=== PATIENT | male | born 1970 | race Caucasian/White ===

== ENCOUNTER 2023-03-27 14:48 | Emergency (ER) | payer SELFPAY ==
[2023-03-27 14:53] VITALS: BP 121/81; PULSE 116; RESP 14; TEMP 36.7; O2SAT 94; BMI 23.8
--- NOTE | 2023-03-27 15:01 | W.ED.ABDPA2 ---
HPI - Abdominal Pain General: Chief Complaint: Abdominal Pain Stated Complaint: swollen abd Time Seen by Provider: 03/27/23 14:51 Source: patient Mode of arrival: ambulatory Limitations: no limitations History of Present Illness: 52-year-old male has history of cirrhosis states that he has been having increasing abdominal distention been going on for months. States that its been increasing in size he states he recently moved here from [place]. He states he is never had a paracentesis before denies any fevers he does have some diffuse slight pain he rates a 4 out of 10. Associated Symptoms: Denies chills, dysuria and fever(s) Review of Systems Const: Denies: fever(s), chills, body aches or change in appetite Eyes: Denies: blurry vision or eye discomfort ENMT: Denies: throat pain or dental pain Card: Denies: chest pain Resp: Denies: dyspnea GI: Reports: abdominal pain : Denies: dysuria Musc: Denies: neck pain or back pain Skin/Breast: Denies: rash Neuro: Denies: headache(s) Physical Exam Const: COMMON NORMALS: no acute distress, patient oriented x3 and healthy appearing HENMT: COMMON NORMALS: normocephalic and atraumatic HEAD & SCALP: normocephalic and atraumatic Neck/C-Spine: COMMON NORMALS: full ROM and supple Chest: COMMONS NORMALS: normal inspection of the chest and normal palpation of entire chest wall Resp: COMMON NORMALS: normal respiratory effort, No retractions, No use of accessory muscles and clear to auscultation bilaterally AUSCULTATION: clear to auscultation bilaterally Cardio: COMMON NORMALS: regular rate, regular rhythm and No murmurs present (Cardio) RATE: regular rate RHYTHM: regular rhythm GI: COMMON NORMALS: Soft to palpation, non-tender and no masses PALPATION: Yes Soft to palpation OTHER: Abdomen is distended has ascites Extremity: COMMON NORMALS: normal to inspection and full ROM Neuro: COMMON NORMALS: patient oriented x3, moves all extremities and no focal motor deficits Psych: COMMON NORMALS: mental status grossly normal, Normal thought process present and cooperative THOUGHT PROCESS: Normal thought process present Skin: COMMON NORMALS: no rashes or lesions noted and no wounds GENERAL SKIN EXAM: no rashes or lesions noted Course Vital Signs: Vital signs: Vital Signs Temperature 98.1 F 03/27/23 14:53 Pulse Rate 116 H 03/27/23 14:53 Respiratory Rate 14 03/27/23 14:53 Blood Pressure 121/81 03/27/23 14:53 Pulse Oximetry 94 03/27/23 14:53 Oxygen Delivery Me thod Room Air 03/27/23 14:53 MDM - Abdominal Pain Medical Decision Making Patient presents with abdominal pain along with ascites been chronic in nature she has no signs of spontaneous bacterial peritonitis she has no dyspnea he is in no distress here we will get him set up for an outpatient paracentesis along with the PCP he is return if worsening he understands agrees to plan. Medical Records I reviewed the patient's medical records. Lab Data I reviewed the patient's lab results. 03/27/23 15:05 03/27/23 15:05 Labs/Radiology: Laboratory Results WBC 6.74 10^3/uL (3.29-11.43) 03/27/23 15:05 RBC 3.27 10^6/uL (3.85-5.65) L 03/27/23 15:05 Hgb 10.00 g/dL (11.27-16.99) L 03/27/23 15:05 Hct 31.1 % (37-53) L 03/27/23 15:05 MCV 95.1 fl (82-101) 03/27/23 15:05 MCH 30.6 pg (27-33) 03/27/23 15:05 MCHC 32.2 g/dL (30-55) 03/27/23 15:05 RDW 17.0 % (12.1-15.1) H 03/27/23 15:05 Plt Count 105 10^3/cmm (157-399) L 03/27/23 15:05 MPV 11.5 fL (7.4-10.4) H 03/27/23 15:05 Neut % (Auto) 74.1 % 03/27/23 15:05 Lymph % (Auto) 17.5 % 03/27/23 15:05 Bent % (Auto) 6.4 % 03/27/23 15:05 Eos % (Auto) 1.3 % 03/27/23 15:05 Baso % (Auto) 0.6 % 03/27/23 15:05 Neut # (Auto) 4.99 10^3/uL (1.8-7.7) 03/27/23 15:05 Lymph # (Auto) 1.2 10^3/uL (0.8-4.8) 03/27/23 15:05 Bent # (Auto) 0.4 10^3/uL (0.2-0.9) 03/27/23 15:05 Eos # (Auto) 0.1 10^3/uL (0.0-0.8) 03/27/23 15:05 Baso # (Auto) 0.0 10^3/uL (0.0-0.1) 03/27/23 15:05 Nucleated RBC % (auto) 0 % 03/27/23 15:05 Nucleated RBCs # 0.0 /100WBC 03/27/23 15:05 Sodium 137 mmol/L (136-145) 03/27/23 15:05 Potassium 3.2 mmol/L (3.5-5.1) L 03/27/23 15:05 Chloride 109 mmol/L (98-107) H 03/27/23 15:05 Carbon Dioxide 17 mmol/L (22-29) L 03/27/23 15:05 Anion Gap 14.2 (5-19) 03/27/23 15:05 BUN 12 mg/dL (6-20) 03/27/23 15:05 Creatinine 0.9 mg/dL (0.7-1.2) 03/27/23 15:05 GFR Calculation 89.3 mL/min (90-130) L 03/27/23 15:05 Glucose 129 mg/dL (65-115) H 03/27/23 15:05 Calculated Osmolality 285 mOsm/kg (285-295) 03/27/23 15:05 Calcium 7.7 mg/dL (8.5-10.5) L 03/27/23 15:05 Total Bilirubin 1.2 mg/dL (0.15-1.2) 03/27/23 15:05 AST 24 U/L (0-40) 03/27/23 15:05 ALT 11 U/L (0-41) 03/27/23 15:05 Alkaline Phosphatase 133 U/L (40-130) H 03/27/23 15:05 Total Protein 7.6 g/dL (6.6-8.7) 03/27/23 15:05 Albumin 2.7 g/dL (3.5-5.2) L 03/27/23 15:05 Globulin 4.9 g/dL (1.3-4.6) H 03/27/23 15:05 Lipase 36 U/L (13-60) 03/27/23 15:05 Discharge Plan Discharge Patient Disposition: Home Clinical Impression: Abdominal pain, Abdominal ascites Condition: Stable Prescriptions: No Action Prilosec 40 mg Capsule,Delayed Release(Dr/Ec) 40 mg PO BID trazodone 100 mg Tablet 100 mg PO BEDTIME Adderall 20 mg Tablet 20 mg PO BID Rx Instructions: administer doses at least 4-6 hours apart Xanax 2 mg Tablet 2 mg PO BEDTIME turmeric 400 mg Capsule 400 mg PO DAILY alex root-pyridoxine HCl(B6) 325-25 mg Capsule 1 cap PO DAILY Discharge Orders: Discharge ED (Routine); Ordered 03/27/23 Ordered By: Mike Hess Discharge Diet: Advance as tolerated Discharge Activity: Resume usual activity Patient Instructions: Ascites (ED), Abdominal Pain (ED) Coding Level of Care Code ED Pulmonologist/Intensivist for aNte Ford
[2023-03-27 15:11] LABS: Basophils % 0.6 %; Eosinophils # 0.1 10^3/uL (0.0-0.8); Eosinophils % 1.3 %; Hematocrit 31.1 % (37-53); Lymphocytes # 1.2 10^3/uL (0.8-4.8); Lymphocytes % 17.5 %; Mean Corpuscular HGB Conc 32.2 g/dL (30-55); Mean Corpuscular Hemoglobin 30.6 pg (27-33); Mean Corpuscular Volume 95.1 fl (82-101); Mean Platelet Volume 11.5 fL (7.4-10.4); Monocytes # 0.4 10^3/uL (0.2-0.9); Monocytes % 6.4 %; Neutrophils # 4.99 10^3/uL (1.8-7.7); Neutrophils % 74.1 %; Nucleated Red Blood Cells % 0 %; Platelet Count 105 10^3/cmm (157-399); Red Blood Count 3.27 10^6/uL (3.85-5.65); White Blood Count 6.74 10^3/uL (3.29-11.43)
--- NOTE | 2023-03-27 15:26 | PC.PHAR ---
pts states they just moved from [place] and not filled his meds since moving here but states the pt takes the medications entered-pt states was on protonix bid but states ran out so went back to taking prilosec 40mg bid-notes are made in the pharmacy comments
[2023-03-27] MEDS: HYDROmorphone 1 mg/mL INJ 1 mL 0.5 MG IVP (15:29)
[2023-03-27] MEDS: ondansetron 2 mg/ML SDV 2 mL 4 MG IVP (15:29)
[2023-03-27 15:34] LABS: Alanine Aminotransferase 11 U/L (0-41); Albumin Level 2.7 g/dL (3.5-5.2); Alkaline Phosphatase 133 U/L (40-130); Blood Urea Nitrogen 12 mg/dL (6-20); Calcium 7.7 mg/dL (8.5-10.5); Carbon Dioxide 17 mmol/L (22-29); Chloride 109 mmol/L (98-107); Globulin 4.9 g/dL (1.3-4.6); Glomerular Filtration Rate 89.3 mL/min (90-130); Glucose 129 mg/dL (65-115); Lipase 36 U/L (13-60); Osmolality Calculated 285 mOsm/kg (285-295); Sodium 137 mmol/L (136-145); Total Bilirubin 1.2 mg/dL (0.15-1.2); Total Protein 7.6 g/dL (6.6-8.7)
[2023-03-27 15:39] LABS: Anion Gap 14.2 (5-19); Aspartate Amino Transferase 24 U/L (0-40); Potassium 3.2 mmol/L (3.5-5.1)
[2023-03-27 16:00] VITALS: BP 112/84; PULSE 104; O2SAT 92
--- NOTE | 2023-03-28 08:16 | DCPLANNER ---
shopping centre manager had message to schedule an outpatient paracentesis for patient. shopping centre manager faxed signed order to GI lab to be scheduled.
--- NOTE | 2023-03-28 10:51 | DCPLANNER ---
global manager had message to speak with patient about getting established with a primary care physician. global manager unable to speak with patient at this time.
== END 2023-03-27 16:12 | disposition home or self-care (01) ==
PROVIDERS: Emergency Provider Emergency Medicine
DX: R10.9 Unspecified abdominal pain (principal); R18.8 Other ascites
CPT/HCPCS: 80053; 83690; 85025; 85610; 96374; 96375; 99284; J1170; J2405

== ENCOUNTER → 2023-03-30 11:34 | Day surgery (SDC) | payer SELFPAY ==
--- NOTE | 2023-03-30 11:40 | US_ITS ---
WS: [id number] ULTRASOUND-GUIDED THERAPEUTIC PARACENTESIS Procedure, risks, and complications have been explained to the patient. Consent is obtained. Utilizing aseptic technique and 1% buffered lidocaine, a small dermatome was made through which a 5 F rench Yueh catheter was inserted. Approximately 4900 ml of clear peritoneal fluid was obtained witho ut difficulty. No complications encountered. IMPRESSION: Uncomplicated paracentesis yielding 4900 ml of peritoneal fluid.
[2023-03-30 11:52] VITALS: BP 105/75; PULSE 103; RESP 16; TEMP 36.9; O2SAT 95; BMI 23.8
[2023-03-30 13:05] VITALS: BP 106/69
[2023-03-30 13:09] VITALS: RESP 16
[2023-03-30] MEDS: oxyCODONE 5 mg IR Tab/Cap PO (13:09)
[2023-03-30] MEDS: ondansetron 4 MG Tablet PO (13:09)
[2023-03-30 13:24] VITALS: BP 98/56; PULSE 90; RESP 18; O2SAT 98
== END ==
PROVIDERS: Radiology Diagnostic Radiology; Visit Provider Emergency Medicine
PROC: (CPT 49082; principal; 2023-03-30 11:30)
DX: R18.8 Other ascites (principal)
CPT/HCPCS: 49083; Q0162

== ENCOUNTER 2023-04-10 23:02 | Emergency (ER) | payer SELFPAY ==
[2023-04-10 23:31] VITALS: BP 110/80; PULSE 101; RESP 16; TEMP 36.6; O2SAT 97; BMI 23.1
--- NOTE | 2023-04-10 23:52 | W.ED.ABDPA2 ---
HPI - Abdominal Pain General: Chief Complaint: Abdominal Pain Stated Complaint: abdomen swelling Time Seen by Provider: 04/10/23 23:46 History of Present Illness: Patient presents to the ER with abdominal pain from known cirrhosis and ascites. Patient had a paracentesis approximately 2 weeks ago and has been feeling back up with fluid ever since. Patient complains of nausea vomiting this time as well as a distended painful abdomen. Patient denies any fever or chills. Review of Systems General: Reports: 10 or more systems reviewed and unremarkable except in HPI and below Physical Exam Const: COMMON NORMALS: no acute distress, average body habitus, patient oriented x3, no limitations, alert and well nourished HENMT: COMMON NORMALS: normocephalic, atraumatic, hearing grossly normal bilaterally, external ears normal, Normal external nose present and moist oral mucous membranes HEAD & SCALP: normocephalic and atraumatic NOSE: Normal external nose present EXTERNAL EAR: Yes external ears normal Neck/C-Spine: COMMON NORMALS: no JVD Chest: COMMONS NORMALS: normal inspection of the chest and normal palpation of entire chest wall Resp: COMMON NORMALS: normal respiratory effort, No retractions, No use of accessory muscles and clear to auscultation bilaterally AUSCULTATION: clear to auscultation bilaterally Cardio: COMMON NORMALS: no JVD, regular rate, regular rhythm, S1 normal heart sound present, S2 normal heart sound present, No gallops present (Cardio), No clicks present (Cardio), No murmurs present (Cardio) and No rub (Cardio) RATE: regular rate RHYTHM: regular rhythm HEART SOUNDS: S1 normal heart sound present and S2 normal heart sound present GI: COMMON NORMALS: Soft to palpation; negative for Normal to inspection, nondistended, normoactive bowel sounds present (Distended but soft, normal active bowel sounds,) and negative for non-tender (Diffusely tender) PALPATION: Yes Soft to palpation : COMMON NORMALS: Yes no CVA tenderness BLADDER/KIDNEY EXAM: Yes no CVA tenderness Back/Pelvis: COMMON NORMALS: no CVA tenderness Neuro: COMMON NORMALS: patient oriented x3 SENSORIUM/ORIENTATION: Yes alert Course Vital Signs: Vital signs: Vital Signs Temperature 98 F 04/10/23 23:31 Pulse Rate 101 H 04/10/23 23:31 Respiratory Rate 16 04/10/23 23:31 Blood Pressure 110/80 04/10/23 23:31 Pulse Oximetry 97 04/10/23 23:31 Oxygen Delivery Me thod Room Air 04/10/23 23:31 MDM - Abdominal Pain Medical Decision Making Patient presents to the ER with abdominal distention ascites secondary to cirrhosis. He was tapped approximately 2 weeks ago probably needs to be tapped again in the short-term future. Lab work was obtained which was stable for the patient patient was given 1 mg of Dilaudid and 4 mg Zofran IM. Patient be sent home with a few oxycodone. Case management has been consulted to schedule a paracentesis again. Patient should follow-up with his PCP within next 7 days or sooner as needed to get this done on outpatient basis. Differential Diagnosis Likely abdominal pain; Unlikely acute appendicitis, calculus of kidney, constipation, diverticulitis, endometriosis, gastroenteritis, pancreatitis or small bowel obstruction Medical Records I reviewed the patient's medical records. Lab Data I reviewed the patient's lab results. 04/10/23 23:54 04/10/23 23:54 Labs/Radiology: Laboratory Results WBC 6.77 10^3/uL (3.29-11.43) 04/10/23 23:54 RBC 3.34 10^6/uL (3.85-5.65) L 04/10/23 23:54 Hgb 10.40 g/dL (11.27-16.99) L 04/10/23 23:54 Hct 32.3 % (37-53) L 04/10/23 23:54 MCV 96.7 fl (82-101) 04/10/23 23:54 MCH 31.1 pg (27-33) 04/10/23 23:54 MCHC 32.2 g/dL (30-55) 04/10/23 23:54 RDW 16.6 % (12.1-15.1) H 04/10/23 23:54 Plt Count 86 10^3/cmm (157-399) L 04/10/23 23:54 MPV 12.3 fL (7.4-10.4) H 04/10/23 23:54 Neut % (Auto) 71.9 % 04/10/23 23:54 Lymph % (Auto) 20.2 % 04/10/23 23:54 [place] % (Auto) 5.5 % 04/10/23 23:54 Eos % (Auto) 1.5 % 04/10/23 23:54 Baso % (Auto) 0.6 % 04/10/23 23:54 Neut # (Auto) 4.87 10^3/uL (1.8-7.7) 04/10/23 23:54 Lymph # (Auto) 1.4 10^3/uL (0.8-4.8) 04/10/23 23:54 [place] # (Auto) 0.4 10^3/uL (0.2-0.9) 04/10/23 23:54 Eos # (Auto) 0.1 10^3/uL (0.0-0.8) 04/10/23 23:54 Baso # (Auto) 0.0 10^3/uL (0.0-0.1) 04/10/23 23:54 Nucleated RBC % (auto) 0 % 04/10/23 23:54 Nucleated RBCs # 0.0 /100WBC 04/10/23 23:54 PT 17.30 SECONDS (12.1-14.9) H 04/10/23 23:54 INR 1.37 (0.8-1.2) H 04/10/23 23:54 Sodium 139 mmol/L (136-145) 04/10/23 23:54 Potassium 3.6 mmol/L (3.5-5.1) 04/10/23 23:54 Chloride 110 mmol/L (98-107) H 04/10/23 23:54 Carbon Dioxide 18 mmol/L (22-29) L 04/10/23 23:54 Anion Gap 14.6 (5-19) 04/10/23 23:54 BUN 14 mg/dL (6-20) 04/10/23 23:54 Creatinine 1.0 mg/dL (0.7-1.2) 04/10/23 23:54 GFR Calculation 79.1 mL/min (90-130) L 04/10/23 23:54 Glucose 84 mg/dL (65-115) 04/10/23 23:54 Calculated Osmolality 288 mOsm/kg (285-295) 04/10/23 23:54 Calcium 8.4 mg/dL (8.5-10.5) L 04/10/23 23:54 Total Bilirubin 1.5 mg/dL (0.15-1.2) H 04/10/23 23:54 AST 25 U/L (0-40) 04/10/23 23:54 ALT 13 U/L (0-41) 04/10/23 23:54 Alkaline Phosphatase 126 U/L (40-130) 04/10/23 23:54 Total Protein 7.6 g/dL (6.6-8.7) 04/10/23 23:54 Albumin 2.8 g/dL (3.5-5.2) L 04/10/23 23:54 Globulin 4.8 g/dL (1.3-4.6) H 04/10/23 23:54 No radiology studies performed this visit Discharge Plan Discharge Patient Disposition: Home Clinical Impression: Cirrhosis of liver with ascites Qualifiers: Hepatic cirrhosis type: unspecified hepatic cirrhosis Qualified Code(s): K74.60 - Unspecified cirrhosis of liver Condition: Stable Prescriptions: New oxycodone 5 mg tablet 5 mg PO Q12H Qty: 7 0RF ondansetron HCl 4 mg tablet 4 mg PO Q8H PRN (Reason: nausea and vomiting) Qty: 14 0RF No Action omeprazole [Prilosec] 40 mg Capsule,Delayed Release(Dr/Ec) 40 mg PO BID trazodone 100 mg Tablet 100 mg PO BEDTIME dextroamphetamine-amphetamine [Adderall] 20 mg Tablet 20 mg PO BID Rx Instructions: administer doses at least 4-6 hours apart alprazolam [Xanax] 2 mg Tablet 2 mg PO BEDTIME turmeric 400 mg Capsule 400 mg PO DAILY alex root-pyridoxine HCl(B6) 325-25 mg Capsule 1 cap PO DAILY Discharge Orders: Discharge ED (Routine); Ordered 04/11/23 Ordered By: Lex Candelario Patient Instructions: Cirrhosis of the Liver (ED), Ascites (ED) Coding Level of Care Code ED Senior Product Engineer for Nate Ford
[2023-04-11 00:13] LABS: Basophils % 0.6 %; Eosinophils # 0.1 10^3/uL (0.0-0.8); Eosinophils % 1.5 %; Hematocrit 32.3 % (37-53); INR 1.37 (0.8-1.2); Lymphocytes # 1.4 10^3/uL (0.8-4.8); Lymphocytes % 20.2 %; Mean Corpuscular HGB Conc 32.2 g/dL (30-55); Mean Corpuscular Hemoglobin 31.1 pg (27-33); Mean Corpuscular Volume 96.7 fl (82-101); Mean Platelet Volume 12.3 fL (7.4-10.4); Monocytes # 0.4 10^3/uL (0.2-0.9); Monocytes % 5.5 %; Neutrophils # 4.87 10^3/uL (1.8-7.7); Neutrophils % 71.9 %; Nucleated Red Blood Cells % 0 %; Platelet Count 86 10^3/cmm (157-399); Red Blood Count 3.34 10^6/uL (3.85-5.65); Red Cell Distribution Width 16.6 % (12.1-15.1); White Blood Count 6.77 10^3/uL (3.29-11.43)
[2023-04-11 00:22] LABS: Alanine Aminotransferase 13 U/L (0-41); Albumin Level 2.8 g/dL (3.5-5.2); Alkaline Phosphatase 126 U/L (40-130); Anion Gap 14.6 (5-19); Aspartate Amino Transferase 25 U/L (0-40); Blood Urea Nitrogen 14 mg/dL (6-20); Calcium 8.4 mg/dL (8.5-10.5); Carbon Dioxide 18 mmol/L (22-29); Chloride 110 mmol/L (98-107); Globulin 4.8 g/dL (1.3-4.6); Glomerular Filtration Rate 79.1 mL/min (90-130); Glucose 84 mg/dL (65-115); Osmolality Calculated 288 mOsm/kg (285-295); Potassium 3.6 mmol/L (3.5-5.1); Sodium 139 mmol/L (136-145); Total Bilirubin 1.5 mg/dL (0.15-1.2); Total Protein 7.6 g/dL (6.6-8.7)
[2023-04-11] MEDS: ondansetron 2 mg/ML SDV 2 mL 4 MG IM (00:28)
[2023-04-11] MEDS: HYDROmorphone 1 mg/mL INJ 1 mL IM (00:28)
[2023-04-11 01:09] VITALS: BP 110/80; PULSE 101; RESP 16; TEMP 36.6; O2SAT 97
--- NOTE | 2023-04-11 08:06 | PC.SOCIAL ---
Paracentesis Orders faxed to centralized scheduling at this time.
== END 2023-04-11 01:10 | disposition home or self-care (01) ==
PROVIDERS: Emergency Provider Emergency Medicine
DX: K74.60 Unspecified cirrhosis of liver (principal); R18.8 Other ascites
CPT/HCPCS: 36415; 80053; 85025; 85610; 99284; J1170; J2405

== ENCOUNTER 2023-04-19 10:55 | Day surgery (SDC) | payer SELFPAY ==
--- NOTE | 2023-04-19 11:11 | US_ITS ---
WS: [id number] ULTRASOUND-GUIDED PARACENTESIS CLINICAL INFORMATION: ascites COMPARISON: None. Procedure Informed consent: The risks, benefits, and alternatives of the procedure were discussed with the chanda ent. Verbal and written consent was obtained. Timeout: A timeout was performed to confirm the correct patient, procedure, and site. Preparation: A suitable skin site was identified. The patient was prepped and draped in usual sterile fashion. Lidocaine 1% was used for local anesthesia. Catheter: 4 D[place]hi One-step Yueh catheter. Side: LEFT lower quadrant. Fluid Volume: 6900 ml Color: Clear yellow DISPOSITION: Discarded safely. Complications: None. Patient disposition: Discharged from the department in stable condition. IMPRESSION: Uncomplicated ultrasound-guided paracentesis. Removal of 6900 cc
[2023-04-19 11:12] VITALS: BP 126/78; PULSE 89; RESP 18; TEMP 37; O2SAT 97; BMI 24.0
== END 2023-04-19 12:55 | disposition home or self-care (01) ==
LOC: GILAB 10:56
PROVIDERS: Radiology Neuroradiology; Visit Provider Nurse Practitioner
PROC: 0W9G3ZZ Drainage of Peritoneal Cavity, Percutaneous Approach (ICD-10-PCS; principal; 2023-04-19 12:00)
DX: R18.8 Other ascites (principal)
CPT/HCPCS: 49083

== ENCOUNTER 2023-06-26 18:00 | Inpatient (IN) | payer OTHER, SELFPAY ==
[2023-06-26] VITALS (11 sets, daily range): BP systolic 94–109; BP diastolic 63–76; PULSE 97–121; RESP 14–24; O2SAT 97–100
--- NOTE | 2023-06-26 18:19 | ECG_ITS ---
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 Measurements Intervals [place] Rate: 110 P: 62 NV: 150 QRS: 20 QRSD: 89 T: 64 QT: 356 QTc: 483 Interpretive Statements SINUS TACHYCARDIA LOW QRS VOLTAGE [QRS DEFLECTION < 0.5/1.0 mV IN LIMB/CHEST LEADS] WARNING: DATA QUALITY MAY AFFECT INTERPRETATION No previous ECG available for comparison Electronically Signed On 06-26-2023 22:13:38 HEMATOLOGIST ONCOLOGIST by Jeana Martinez M.D. [id number]
--- NOTE | 2023-06-26 18:21 | CTR_ITS ---
PROCEDURE INFORMATION: Exam: CT Head Without Contrast Exam date and time: 06/26/2023 6:31 PM Age: 52 years old Clinical indication: Altered mental status/memory loss; Additional info: AMS TECHNIQUE: Imaging protocol: Computed tomography of the head without contrast. Axial, coronal and sagittal reformatted images were created and reviewed. Radiation optimization: All CT scans at this facility use at least one of these dose optimization techniques: automated exposure control; mA and/or kV adjustment per patient size (includes targeted exams where dose is matched to clinical indication); or iterative reconstruction. REPORTING DATA: Count of CT and Cardiac NM exams in prior 12 months: This patient has received 0 known CTs and 0 known cardiac nuclear medicine studies in the 12 months prior to the current study. COMPARISON: No relevant prior studies available. RADIATION DOSE METRICS: Total DLP (mGy-cm): 1214 FINDINGS: Brain: No CT evidence of acute intracranial hemorrhage or acute territorial infarction. No significant mass effect or midline shift. Basal cisterns patent. Cerebral ventricles: Prominence of the cortical sulci, cisterns and ventricular system, consistent with cerebral and cerebellar volume loss. Paranasal sinuses: Unremarkable. No fluid levels. Mastoid air cells: Grossly unremarkable. Bones/joints: No acute osseous abnormality. Soft tissues: Grossly unremarkable. CT/CT head wo con* [id number]: 1. No CT evidence of acute intracranial pathology. 2. Additional findings, as above.
[2023-06-26 19:09] LABS: Basophils % 0.5 %; Eosinophils # 0.1 10^3/uL (0.0-0.8); Eosinophils % 2.1 %; Hematocrit 28.2 % (37-53); Lymphocytes # 1.2 10^3/uL (0.8-4.8); Lymphocytes % 27.2 %; Mean Corpuscular Hemoglobin 30.4 pg (27-33); Mean Corpuscular Volume 92.2 fl (82-101); Mean Platelet Volume 12.1 fL (7.4-10.4); Monocytes # 0.3 10^3/uL (0.2-0.9); Monocytes % 6.2 %; Neutrophils % 63.8 %; Nucleated Red Blood Cells % 0 %; Platelet Count 89 10^3/cmm (157-399); Red Blood Count 3.06 10^6/uL (3.85-5.65); Red Cell Distribution Width 14.2 % (12.1-15.1); White Blood Count 4.38 10^3/uL (3.29-11.43)
[2023-06-26 19:31] LABS: Alanine Aminotransferase 12 U/L (0-41); Alkaline Phosphatase 115 U/L (40-130); Anion Gap 18.8 (5-19); Aspartate Amino Transferase 21 U/L (0-40); Blood Urea Nitrogen 58 mg/dL (6-20); Calcium 7.9 mg/dL (8.5-10.5); Carbon Dioxide 18 mmol/L (22-29); Chloride 104 mmol/L (98-107); Glomerular Filtration Rate 19.3 mL/min (90-130); Glucose 100 mg/dL (65-115); Osmolality Calculated 300 mOsm/kg (285-295); Potassium 3.8 mmol/L (3.5-5.1); Sodium 137 mmol/L (136-145); Total Bilirubin 1.3 mg/dL (0.15-1.2)
[2023-06-26 19:32] LABS: Ammonia 243 umol/L (16-60)
[2023-06-26 19:33] LABS: Lactic Sepsis W/Reflex 2.4 mmol/L (0.5-2.2)
--- NOTE | 2023-06-26 19:35 | PC.NURSE ---
Assumed care of patient from Caroline Rodriguez RN @ [phone].
[2023-06-26 19:37] LABS: Procalcitonin 0.15 ng/mL (0-0.5)
[2023-06-26 19:58] LABS: Urine Appearance Clear (CLEAR); Urine Color Dark Yellow (Yellow); pH Urine 5 (5-7)
[2023-06-26 19:59] LABS: Bilirubin Urine 1+ (Negative); Blood Urine Neg (Negative); Glucose Urine UA Norm (Normal); Ketones Urine Negative (Negative); Leukocyte Esterase Urine Negative (Negative); Nitrate Urine Negative (Negative); Protein Urine Neg (Negative); Urobilinogen Urine Norm (Negative)
[2023-06-26 20:16] LABS: Add Urine Culture? No; Mucus Urine TRACE /hpf; RBC Urine 0-4 /hpf (0-2); Squamous Epithelial Cell Urine 0-4 /hpf (0-5); WBC Urine 0-4 /hpf (0-5)
[2023-06-26 20:53] LABS: Reflex Lactate Order REFLEX LACTIC ORDERD
--- NOTE | 2023-06-26 21:02 | ED_ITS ---
HPI - Altered Mental Status 2 General: Chief Complaint: Altered Mental Status Stated Complaint: Unresponsive Time Seen by Provider: 06/26/23 18:09 History of Present Illness: 52-year-old male presents emergency depa rtment via EMS personnel with concerns from EMS personnel that his partner called them due to increased unresponsiveness from the patient. He does have a history of liver cirrhosis and long standing alcohol use. Patient does appear to be acutely ill he is nonverbal at present he does have a distended abdomen consistent with ascites. He is a poor historian and is unable to provide us any additional information. Review of Systems 2 General: Reports: ROS unobtainable due to medical condition and ROS unobtainable due to mental status Physical Exam 2 Narrative: Constitutional: the patient appears acutely ill, frail. Unable to respond appropriately to verbal request. Vital signs reviewed as documented. HENMT: Normocephalic, atraumatic. Extermal ears with normal appearance without drainage. Nose without drainage, normal appearance. Mucus membranes moist. No scleral icterus Neck is supple, No jugular venous distension, trachea is midline, no appreciable carotid bruits. No lymphadenopathy. No meningeal signs. Flexion, extension and lateral rotation is without pain. Eyes: Pupils are equal, round, reactive to light and accommodation. No scleral icterus. Extra-ocular movement are intact. Thorax is symmetrical and with equal rise and fall with respirations. Resp: Lungs are clear to auscultation. No wheezes, rales, crackles or ronchi at present. Cardio: Regular rate and rhythm. Positive S1, S2. No appreciable murmurs, rubs or gallops. GI: Abdominal exam reveals normal bowel sounds to all quadrants. No organomegaly. No obvious palpable masses noted. No hepatomegally appreciated. Firm, distended, with tympany and obvious fluid wave secondary to abdominal ascites. Extremity: Extremities are non-edematous and both femoral and pedal pulses are 2+ and equal bilaterally. Moves all extremities well, sensation in all extremities. Neuro: Responsive to noxious stimuli. Nonverbal, positive for asterixis and clonus.. Remainder of testable cranial nerves are grossly intact, there is no focal neurological deficits that I can appreciate at present. Motor strength in the upper and lower extremities are equal and bilateral 5/5. Psych: Cooperative, calm, normal thought process, appropriate judgment. Skin: No lesions, rashes. No gross abnormalities noted. Back: Symmetrical, no obvious deformity, No CVA tenderness Urinary Catheter Management: Emery: Cath Placed During This Visit: yes Urinary Catheter Date of Insertion: 06/26/23 Course 2 Vital Signs: Vital signs: Vital Signs Pulse Rate 70 06/27/23 01:56 Respiratory Rate 14 06/27/23 01:56 Blood Pressure 96/58 06/27/23 01:56 Pulse Oximetry 100 06/27/23 01:56 Oxygen Delivery Me thod Room Air 06/26/23 23:15 MDM - Altered Mental Status Medical Decision Making Physical exam completed and documented, I will obtain a CBC, CMP, PT PTT INR and ammonia level. We will obtain twelve-lead EKG and blood cultures. I will request admission of the patient after providing him lactulose enema to help decrease his ammonia level. Medical Records I reviewed the patient's medical records. Lab Data I reviewed the patient's lab results. 06/26/23 18:52 06/26/23 18:[address] 06/26/23 18:[address]: [address] evidence of acute intracranial pathology. 2. Additional findings, as above. Abdomen/Pelvis CT 06/26/23 21:07 IMPRESSION: 1. Cirrhosis, mild splenomegaly and large volume ascites. 2. Multifocal bowel wall thickening, likely secondary to 3rd spacing. 3. Small right pleural effusion. 4. Additional findings, as above. Laboratory Results WBC 4.38 10^3/uL (3.29-11.43) 06/26/23 18:52 RBC 3.06 10^6/uL (3.85-5.65) L 06/26/23 18:52 Hgb 9.30 g/dL (11.27-16.99) L 06/26/23 18:52 Hct 28.2 % (37-53) L 06/26/23 18:52 MCV 92.2 fl (82-101) 06/26/23 18:52 MCH 30.4 pg (27-33) 06/26/23 18:52 MCHC 33.0 g/dL (30-55) 06/26/23 18:52 RDW 14.2 % (12.1-15.1) 06/26/23 18:52 Plt Count 89 10^3/cmm (157-399) L 06/26/23 18:52 MPV 12.1 fL (7.4-10.4) H 06/26/23 18:52 Neut % (Auto) 63.8 % 06/26/23 18:52 Lymph % (Auto) 27.2 % 06/26/23 18:52 [place] % (Auto) 6.2 % 06/26/23 18:52 Eos % (Auto) 2.1 % 06/26/23 18:52 Baso % (Auto) 0.5 % 06/26/23 18:52 Neut # (Auto) 2.80 10^3/uL (1.8-7.7) 06/26/23 18:52 Lymph # (Auto) 1.2 10^3/uL (0.8-4.8) 06/26/23 18:52 [place] # (Auto) 0.3 10^3/uL (0.2-0.9) 06/26/23 18:52 Eos # (Auto) 0.1 10^3/uL (0.0-0.8) 06/26/23 18:52 Baso # (Auto) 0.0 10^3/uL (0.0-0.1) 06/26/23 18:52 Nucleated RBC % (auto) 0 % 06/26/23 18:52 Nucleated RBCs # 0.0 /100WBC 06/26/23 18:52 PT 17.60 SECONDS (12.1-14.9) H 06/26/23 18:52 INR 1.40 (0.8-1.2) H 06/26/23 18:52 APTT 33.0 SECONDS (23.9-36.7) 06/26/23 18:52 D-Dimer 15.50 ug/mLFEU (0-0.59) H 06/26/23 18:52 Sodium 137 mmol/L (136-145) 06/26/23 18:52 Potassium 3.8 mmol/L (3.5-5.1) 06/26/23 18:52 Chloride 104 mmol/L (98-107) 06/26/23 18:52 Carbon Dioxide 18 mmol/L (22-29) L 06/26/23 18:52 Anion Gap 18.8 (5-19) 06/26/23 18:52 BUN 58 mg/dL (6-20) H 06/26/23 18:52 Creatinine 3.4 mg/dL (0.7-1.2) H 06/26/23 18:52 GFR Calculation 19.3 mL/min (90-130) L 06/26/23 18:52 Glucose 100 mg/dL (65-115) 06/26/23 18:52 Estimat Average Glucose 82 06/26/23 18:52 Hemoglobin A1c 4.5 % (4.0-6.0) 06/26/23 18:52 Calculated Osmolality 300 mOsm/kg (285-295) H 06/26/23 18:52 Lactic Acid 2.4 mmol/L (0.5-2.2) H 06/26/23 18:52 Lactic Acid (Sepsis) 1.8 mmol/L (0.5-2.2) 06/26/23 22:14 Calcium 7.9 mg/dL (8.5-10.5) L 06/26/23 18:52 Total Bilirubin 1.3 mg/dL (0.15-1.2) H 06/26/23 18:52 AST 21 U/L (0-40) 06/26/23 18:52 ALT 12 U/L (0-41) 06/26/23 18:52 Alkaline Phosphatase 115 U/L (40-130) 06/26/23 18:52 Ammonia 243 umol/L (16-60) H 06/26/23 18:52 Total Protein 8.0 g/dL (6.6-8.7) 06/26/23 18:52 Albumin 3.0 g/dL (3.5-5.2) L 06/26/23 18:52 Globulin 5.0 g/dL (1.3-4.6) H 06/26/23 18:52 Vitamin B12 1044 pg/mL (232-1245) 06/26/23 18:52 Procalcitonin 0.15 ng/mL (0-0.5) 06/26/23 18:52 TSH 2.20 uIU/mL (0.27-4.20) 06/26/23 18:52 Urine Color Dark yellow (Yellow) 06/26/23 19:00 Urine Appearance Clear (CLEAR) 06/26/23 19:00 Urine pH 5 (5-7) 06/26/23 19:00 Ur Specific [place] 1.010 (1.005-1.030) 06/26/23 19:00 Urine Protein Neg (Negative) 06/26/23 19:00 Urine Glucose (UA) Norm (Normal) 06/26/23 19:00 Urine Ketones Negative (Negative) 06/26/23 19:00 Urine Blood Neg (Negative) 06/26/23 19:00 Urine Nitrate Negative (Negative) 06/26/23 19:00 Urine Bilirubin 1+ (Negative) H 06/26/23 19:00 Urine Urobilinogen Norm mg/dL (Negative) 06/26/23 19:00 Ur Leukocyte Esterase Negative (Negative) 06/26/23 19:00 Urine RBC 0-4 /hpf (0-2) H 06/26/23 19:00 Urine WBC 0-4 /hpf (0-5) H 06/26/23 19:00 Ur Squamous Epith Cells 0-4 /hpf (0-5) H 06/26/23 19:00 Amorphous Sediment Not Reportable 06/26/23 19:00 Urine Bacteria None /hpf (NONE) 06/26/23 19:00 Urine Mucus Trace /hpf 06/26/23 19:00 Peritoneal Color Yellow (Pale Yellow) 06/27/23 01:29 Peritoneal Appearance Hazy (Clear) 06/27/23 01:29 Peritoneal pH 8.0 06/27/23 01:29 Peritoneal Spec [place] 1.010 06/27/23 01:29 Peritoneal WBC 0 /uL 06/27/23 01:29 Peritoneal RBC 0 10^3/uL 06/27/23 01:29 Periton Mononu # Auto 0.078 10^3/uL 06/27/23 01:29 Mononuclear WBCs % 89.700 % 06/27/23 01:29 Polynuclear WBCs % 10.300 % 06/27/23 01:29 Perit Polynuc WBCs # 0.009 10^3/uL 06/27/23 01:29 All radiology interpretation(s) finalized by discharge Discharge Plan Discharge Admit Provider: Costa Khan Condition: Stable Coding Level of Care Code ED Education Department Registrar for g Logan
--- NOTE | 2023-06-26 21:07 | CTR_ITS ---
PROCEDURE INFORMATION: Exam: CT Abdomen And Pelvis Without Contrast Exam date and time: 06/26/2023 9:25 PM Age: 52 years old Clinical indication: Other: Abd distension TECHNIQUE: Imaging protocol: Computed tomography of the abdomen and pelvis without contrast. Axial, coronal and sagittal reformatted images were created and reviewed. Radiation optimization: All CT scans at this facility use at least one of these dose optimization techniques: automated exposure control; mA and/or kV adjustment per patient size (includes targeted exams where dose is matched to clinical indication); or iterative reconstruction. REPORTING DATA: Count of CT and Cardiac NM exams in prior 12 months: This patient has received 0 known CTs and 0 known cardiac nuclear medicine studies in the 12 months prior to the current study. COMPARISON: [place] paracentesis abd w [id number] 04/19/2023 11:22 AM RADIATION DOSE METRICS: Total DLP (mGy-cm): 711.9 FINDINGS: Lungs: Linear stranding and groundglass at the lung bases, likely due to atelectasis and/or scarring. Pleural spaces: Small right pleural effusion. Diaphragm: Small hiatal hernia. Liver: Nodular hepatic contour, consistent with cirrhosis. Gallbladder and bile ducts: No radiodense gallstones. No biliary ductal dilatation. Pancreas: Unremarkable. Spleen: Mild splenomegaly. Adrenal glands: Normal. No mass. Kidneys and ureters: No mass. No radiodense calculi. No hydronephrosis. Stomach and bowel: Multifocal bowel wall thickening, likely secondary to 3rd spacing. No obstruction. No pneumatosis. Appendix: Normal. Intraperitoneal space: Large volume ascites. No definite organized collection. No free air. Vasculature: Left retroperitoneal embolic coil material. Mild atherosclerotic disease. No aneurysm. Lymph nodes: No pathologically enlarged lymph nodes. Urinary bladder: Unremarkable as visualized. Reproductive: Unremarkable. Bones/joints: No acute osseous abnormality. Osteopenia. Mild degenerative changes. Soft tissues: Small, fluid containing umbilical hernia. CT/CT abdomen pelvis wo con [id number] IMPRESSION: 1. Cirrhosis, mild splenomegaly and large volume ascites. 2. Multifocal bowel wall thickening, likely secondary to 3rd spacing. 3. Small right pleural effusion. 4. Additional findings, as above.
--- NOTE | 2023-06-26 21:26 | P.HP_ITS ---
Providers/Chief Complaint 2 Chief Complaint: Unresponsive History of Present Illness Eduar Alves is a 52 year old male Medications/Allergies Home Medications Medication Instructions Recorded Confirmed Last Taken Type alprazolam 2 mg tablet (Xanax) 2 mg PO BEDTIME 03/27/23 04/19/23 04/12/23 History dextroamphetamine-amphetamine 20 20 mg PO BID 03/27/23 04/19/23 04/12/23 History mg tablet (Adderall) alex root 325 mg-pyridoxine HCl 1 cap PO DAILY 03/27/23 04/19/23 04/18/23 History (vitamin B6) 25 mg capsule omeprazole 40 mg capsule,delayed 40 mg PO BID 03/27/23 04/19/23 04/19/23 History release trazodone 100 mg tablet 100 mg PO BEDTIME 03/27/23 04/19/23 04/18/23 History turmeric 400 mg capsule 400 mg PO DAILY 03/27/23 04/19/23 04/18/23 History ondansetron HCl 4 mg tablet 4 mg PO Q8H PRN nausea and 04/11/23 04/19/23 04/15/23 Rx vomiting #14 tabs Allergies Allergy/AdvReac Type Severity Reaction Status Date / Time aspirin Allergy Unknown Verified 06/26/23 18:07 ibuprofen Allergy Unknown Verified 06/26/23 18:07 morphine Allergy ALGY-Anaphy Verified 03/27/23 15:20 laxis NSAIDS (Non-Steroidal Allergy Unknown Verified 06/26/23 18:51 Anti-Inflamma tramadol Allergy ALGY-Anaphy Verified 03/27/23 15:20 laxis Vitals/I&O/Wt Last Vital Signs Pulse 112 H 06/26/23 21:00 Resp 20 H 06/26/23 21:00 BP 94/67 06/26/23 21:00 Pulse Ox 99 06/26/23 21:00 O2 Del Method Room Air 06/26/23 21:00 Physical Exam 2 Urinary Catheter Management: Emery: Cath Placed During This Visit: yes Urinary Catheter Date of Insertion: 06/26/23 Data 06/26/23 18:52 06/26/23 18:52 Micro: Microbiology 06/26/23 18:56 Blood Culture - Preliminary Blood SPECIMEN COLLECTED 06/26/23 18:52 Blood Culture - Preliminary Blood SPECIMEN COLLECTED Coding Level of Care Code Acute Code for Chg Logan
[2023-06-26] MEDS: piperacillin-tazobactam 2.25 GM in sodium chloride 0.9% (plus) 50 ML IV (22:05)
[2023-06-26] MEDS: albumin 50 G/200 ML BAG 60 G IV ×2 (22:28→23:56)
[2023-06-26 22:43] LABS: Estmated Average Glucose 82; Hemoglobin A1C 4.5 % (4.0-6.0)
[2023-06-26 22:46] LABS: Lactic Acid level (Lactate) 1.8 mmol/L (0.5-2.2)
[2023-06-27] VITALS (50 sets, daily range): BP systolic 80–104; BP diastolic 49–60; PULSE 47–96; RESP 7–22; O2SAT 97–100; BMI 19.5
--- NOTE | 2023-06-27 00:49 | PC.NURSE ---
Albumin boluses by Dr Khanna.
[2023-06-27 01:47] LABS: Appearance, Peritoneal Fluid Hazy (Clear); Color, Peritoneal Fluid Yellow (Pale Yellow)
[2023-06-27 01:50] LABS: Cyto Order Verification No Order
--- NOTE | 2023-06-27 01:54 | PM.HP ---
Providers/Chief Complaint Chief Complaint: Unresponsive History of Present Illness Eduar Alves is a 52 year old male with history of alcohol-related liver cirrhosis, status post TIPS procedure June 2022 at [place], moved with his in February to [place], patient has had 2-3 paracentesis for recurrent ascites, he was seen at [facility] as well when they were not able to pay for the medical bills here, presented today for worsening of confusion. is at the bedside stating that Mr. Phan has been getting worse gradually, became confused lethargic around in the evening which prompted visit to the ER. He has been complaining of abdominal distention and pain he is upset that paracentesis was not done because of insurance issues. They have not noticed fever, nausea, vomiting. No previous diagnosis of HIV or hepatitis In the ER he seems to have severe grade hepatic encephalopathy, hepatorenal syndrome, therapeutic paracentesis done 5 L removed, albumin administered, patient is hypotensive, afebrile Zosyn administered, Review of Systems General: Reports: ROS unobtainable due to medical condition Medications/Allergies Home Medications Medication Instructions Recorded Confirmed Last Taken Type alprazolam 2 mg tablet (Xanax) 2 mg PO BEDTIME 03/27/23 04/19/23 04/12/23 History dextroamphetamine-amphetamine 20 20 mg PO BID 03/27/23 04/19/23 04/12/23 History mg tablet (Adderall) alex root 325 mg-pyridoxine HCl 1 cap PO DAILY 03/27/23 04/19/23 04/18/23 History (vitamin B6) 25 mg capsule omeprazole 40 mg capsule,delayed 40 mg PO BID 03/27/23 04/19/23 04/19/23 History release trazodone 100 mg tablet 100 mg PO BEDTIME 03/27/23 04/19/23 04/18/23 History turmeric 400 mg capsule 400 mg PO DAILY 03/27/23 04/19/23 04/18/23 History ondansetron HCl 4 mg tablet 4 mg PO Q8H PRN nausea and 04/11/23 04/19/23 04/15/23 Rx vomiting #14 tabs Allergies Allergy/AdvReac Type Severity Reaction Status Date / Time aspirin Allergy Unknown Verified 06/26/23 18:07 ibuprofen Allergy Unknown Verified 06/26/23 18:07 morphine Allergy ALGY-Anaphy Verified 03/27/23 15:20 laxis NSAIDS (Non-Steroidal Allergy Unknown Verified 06/26/23 18:51 Anti-Inflamma tramadol Allergy ALGY-Anaphy Verified 03/27/23 15:20 laxis Vitals/I&O/Wt Last Vital Signs Pulse 94 06/27/23 00:45 Resp 22 H 06/27/23 00:45 BP 90/60 06/27/23 00:45 Pulse Ox 100 06/27/23 00:45 O2 Del Method Room Air 06/26/23 23:15 06/26/23 06/26/23 06/27/23 14:59 22:59 06:59 Intake Total 50 / 50 400 / 450 Balance 50 / 50 400 / 450 Physical Exam Narrative: Patient has severe degree of hepatic encephalopathy Not able to communicate Positive asterixis Abdominal distention Muscle mass loss Malnourished Able to move his extremities Purposeless movement of extremities Afebrile Currently on room air Hypotensive Nonfocal neuro exam Urinary Catheter Management: Emery: Cath Placed During This Visit: yes Urinary Catheter Date of Insertion: 06/26/23 Data 06/26/23 18:52 06/26/23 18:52 Micro: Microbiology 06/26/23 18:56 Blood Culture - Preliminary Blood SPECIMEN COLLECTED 06/26/23 18:52 Blood Culture - Preliminary Blood SPECIMEN COLLECTED A&P Assessment and plan (1) S/P TIPS (transjugular intrahepatic portosystemic shunt): (2) Liver cirrhosis, alcoholic: (3) Hepatic encephalopathy: Plan High-grade hepatic encephalopathy Decompensated liver cirrhosis We will add lactulose to be given rectally Add thiamine, rifaximin Check hepatitis and HIV panel Status post diagnostic and therapeutic paracentesis Rule out SBP We will keep him on albumin and Zosyn for now Status post TIPS procedure Patient has had upper and lower GI bleed in the past, status post banding, his next endoscopy is in July 2023 for banding He suffered from alcohol-related liver cirrhosis, this procedure was done in [place] June 2022 They recently moved to [place] in February, they have a primary care physician here They are coming to the hospital for paracentesis As per the there was consideration for revision of TIPS procedure as well because of his recurrent ascites Patient remains full code for now N.p.o. DVT prophylaxis SCDs Thrombocytopenia likely portal hypertension related Worsening creatinine, [place], concern for hepatorenal syndrome Abnormal coagulopathy related to liver failure I did recommend transfer to tertiary center however requested to stay here because he is not showing any signs of deterioration at this point and there is no sign of active GI bleed his hemoglobin is 9.3, he does understand that in case of any worsening with variceal bleed due to portal hypertension we do not have GI backup for variceal banding, he is requesting hospice service to admit him at the hospital Please note, [facility] will be able to take him by at 7 PM tomorrow, please touch base with the hospital in the morning Attestations Medical Necessity Statement*: More than 2 midnights anticipated Coding Level of Care Code Critical Care >/= 30 minutes Critical care time (in minutes): 55 The high probability of a clinically significant, sudden or life threatening deterioration, as referenced in this documentation, required my full and direct attention, intervention and personal management. The critical care time shown is in addition to time spent performing any reported separately billable procedures and includes the following: [x] Data and vital sign review and interpretation [x] Patient assessment, examination and intervention [x] Medication orders and management [x] Patient/Family updates as able [x] Care Coordination and Documentation. Diagnoses S/P TIPS (transjugular intrahepatic portosystemic shunt) Z95.828 Liver cirrhosis, alcoholic K70.30 Hepatic encephalopathy K76.82
[2023-06-27 01:55] LABS: Vitamin B12 1044 pg/mL (232-1245)
[2023-06-27 01:58] LABS: Mononuclear #, Pertinoneal Fl 0.078 10^3/uL; Polynuclear # Cells, Perit 0.009 10^3/uL
--- NOTE | 2023-06-27 02:06 | P.HP_ITS ---
Providers/Chief Complaint 2 Admitting Physician: Costa Khan MD Chief Complaint: Unresponsive History of Present Illness Eduar Alves is a 52 year old male Medications/Allergies Home Medications Medication Instructions Recorded Confirmed Last Taken Type alprazolam 2 mg tablet (Xanax) 2 mg PO BEDTIME 03/27/23 04/19/23 04/12/23 History dextroamphetamine-amphetamine 20 20 mg PO BID 03/27/23 04/19/23 04/12/23 History mg tablet (Adderall) alex root 325 mg-pyridoxine HCl 1 cap PO DAILY 03/27/23 04/19/23 04/18/23 History (vitamin B6) 25 mg capsule omeprazole 40 mg capsule,delayed 40 mg PO BID 03/27/23 04/19/23 04/19/23 History release trazodone 100 mg tablet 100 mg PO BEDTIME 03/27/23 04/19/23 04/18/23 History turmeric 400 mg capsule 400 mg PO DAILY 03/27/23 04/19/23 04/18/23 History ondansetron HCl 4 mg tablet 4 mg PO Q8H PRN nausea and 04/11/23 04/19/23 04/15/23 Rx vomiting #14 tabs Allergies Allergy/AdvReac Type Severity Reaction Status Date / Time aspirin Allergy Unknown Verified 06/26/23 18:07 ibuprofen Allergy Unknown Verified 06/26/23 18:07 morphine Allergy ALGY-Anaphy Verified 03/27/23 15:20 laxis NSAIDS (Non-Steroidal Allergy Unknown Verified 06/26/23 18:51 Anti-Inflamma tramadol Allergy ALGY-Anaphy Verified 03/27/23 15:20 laxis Vitals/I&O/Wt Last Vital Signs Pulse 70 06/27/23 01:56 Resp 14 06/27/23 01:56 BP 96/58 06/27/23 01:56 Pulse Ox 100 06/27/23 01:56 O2 Del Method Room Air 06/26/23 23:15 06/26/23 06/26/23 06/27/23 14:59 22:59 06:59 Intake Total 50 / 50 400 / 450 Balance 50 / 50 400 / 450 Physical Exam 2 Urinary Catheter Management: Emery: Cath Placed During This Visit: yes Urinary Catheter Date of Insertion: 06/26/23 Data 06/26/23 18:52 06/26/23 18:52 Micro: Microbiology 06/26/23 18:56 Blood Culture - Preliminary Blood SPECIMEN COLLECTED 06/26/23 18:52 Blood Culture - Preliminary Blood SPECIMEN COLLECTED Coding Level of Care Code Acute Code for Chg Logan
[2023-06-27 02:13] LABS: WBC Peritoneal Fluid 0 /uL
[2023-06-27 02:14] LABS: RBC Pertioneal Fluid 0 10^3/uL
[2023-06-27 02:32] LABS: Albumin Peritoneal Fluid 0.3 g/dL; Amylase Peritoneal Fluid 8 U/L (88-109); Pathology Referral Yes; Total Protein Peritoneal Fluid 0.8 g/dL
--- NOTE | 2023-06-27 02:38 | USCV_ITS ---
Eduar Alves Age: 52 Gender: M : 1970 Exam Date: 06/27/2023 04:06 Ordering Phys: Costa Khan MD Technologist: DAWIT Exam Location: [facility] [place] Indication: evaluate for EF. liver cirrhosis. Unresponsive in ICU-10. No history of cardiac intervention per caregiver. BP: 96 / 58 HR: 55 Rhythm: Sinus Technical Quality: adequate MEASUREMENTS (Male / Female) Normal Values 2D ECHO LV Diastolic Diameter PLAX 3.6 cm 4.2 - 5.9 / 3.9 - 5.3 cm LV Systolic Diameter PLAX 2.2 cm IVS Diastolic Thickness 1.1 cm 0.6 - 1.0 / 0.6 - 0.9 cm IVS Systolic Thickness 1.2 cm LVPW Diastolic Thickness 1.1 cm 0.6 - 1.0 / 0.6 - 0.9 cm LVPW Systolic Thickness 1.5 cm LVOT Diameter 2.1 cm LV Ejection Fraction 2D Teich 72.3 % LV Ejection Fraction MOD 2C 69.4 % LV Ejection Fraction 2C AL 71.5 % LA Diameter 4.1 cm LA Width 4.9 cm LA Height 6.0 cm RA Width 3.1 cm RA Height 4.8 cm Aorta at Sinotubular Diameter 3.2 cm IVC Diameter 1.1 cm M-MODE Aortic Annulus Diameter 3.2 cm LA Ao Ratio MM 1.4 MV E Point Septal Separation 0.4 cm DOPPLER AV Peak Velocity 116.0 cm/s LVOT Peak Velocity 75.0 cm/s AV Area Cont Eq vti 2.3 cm squared AV Area Cont Eq pk 2.3 cm squared MV Peak Velocity 100.0 cm/s MV Area PHT 3.0 cm squared Mitral E to A Ratio 2.1 MV E' Velocity 58.5 cm/s Mitral E to MV E' Ratio 9.0 Mitral E to LV E' Lateral Ratio 7.0 Mitral E to LV E' Septal Ratio 12.8 TR Peak Velocity 231.0 cm/s TR Peak Gradient 21.3 mmHg TV Peak E Velocity 64.0 cm/s Right Atrial Pressure 10.0 mmHg Pulmonary Artery Systolic Pressu 31.3 mmHg PV Peak Velocity 105.0 cm/s FINDINGS Left Ventricle Left ventricle is normal in size. LV systolic function is normal with EF of 60 to 65%. No regional wall motion abnormalities are seen. Right Ventricle Normal in size and function Right Atrium Normal in size Left Atrium Dilated Mitral Valve Structurally normal mitral valve. Trace mitral regurgitation. Aortic Valve Structurally normal aortic valve. No significant stenosis or regurgitation seen. Tricuspid Valve Mild tricuspid regurgitation. Insufficient TR jet to calculate RVSP. Pulmonic Valve Not well visualized Pericardium Normal Aorta Normal in size IVC Appears to be normal CONCLUSIONS LV systolic function is normal with EF of 60 to 65%. Left atrial dilation Trace mitral regurgitation Mild tricuspid regurgitation No comparison studies are available. Jossue Waggoner MD (Electronically Signed) Final Date: 27 June 2023 09:49 S
[2023-06-27 03:03] LABS: Amphetamines Screen Urine Positive (Negative); Barbiturates Screen Urine Negative (Negative); Benzodiazepines Screen Urine Negative (Negative); Cocaine Screen Urine Negative (Negative); Opiate Screen Urine Negative (Negative); PCP Screen Urine Negative (Negative); THC Screen Urine Positive (Negative)
[2023-06-27 03:14] LABS: Urine Random Chloride 10 mmol/L; Urine Random Sodium 10 mmol/L
[2023-06-27 03:15] LABS: Creatinine Urine, Random 143 mg/dL (39-259); Microalbumin Random Urine 10 ug/dL (0-20)
[2023-06-27 03:16] LABS: Microalbum Creatinine Ratio Ur 70 mg/dL (0-20)
[2023-06-27] MEDS: lactulose oral liq 20 gm/30 mL UDC PR (04:57)
[2023-06-27] MEDS: albumin 25 G/100 ML BAG 60 G IV ×3 (04:58→21:01)
[2023-06-27] MEDS: oxyCODONE 5 mg IR Tab/Cap PO (06:47)
--- NOTE | 2023-06-27 07:22 | P.PN_ITS ---
Subjective 2 Subjective: Patient has thrombocytopenia Patient is still confused, mentation clearing up to some extent, he was asking for pain medication, CMP is pending Coagulopathy Creatinine 3.4 SBP ruled out Patient has positive drug screen for methamphetamine and marijuana, patient takes Adderall for ADHD Urine output 450 mL, Vitals/I&O/Wt Last Vital Signs Pulse 70 06/27/23 01:56 Resp 18 06/27/23 06:47 BP 96/58 06/27/23 01:56 Pulse Ox 100 06/27/23 01:56 O2 Del Method Room Air 06/27/23 02:48 06/26/23 06/27/23 06/27/23 22:59 06:59 14:59 Intake Total 50 / 50 675 / 725 Output Total 450 / 450 Balance 50 / 50 225 / 275 Weight last 48 hrs Weight 58.377 kg Weight 58.377 kg Physical Exam 2 Narrative: Signs of hepatic encephalopathy present, mentation clearing up Abdominal distention improved from last night GCS 15 Nonfocal neuro exam Able to make his needs known Cachectic, malnourished Significant muscle mass loss S1, S2 Currently on room air Blood pressure 96/50 mmHg Urinary Catheter Management: Emery: Cath Placed During This Visit: yes Reason for Continuing Indwelling Catheter: Accurate Measurement of Urinary Output in Critically Ill Patients Urinary Catheter Date of Insertion: 06/26/23 Data 06/26/23 18:52 06/26/23 18:52 Micro: Microbiology 06/26/23 18:56 Blood Culture - Preliminary Blood SPECIMEN COLLECTED 06/26/23 18:52 Blood Culture - Preliminary Blood SPECIMEN COLLECTED A&P Assessment and plan (1) Hepatic encephalopathy: (2) S/P TIPS (transjugular intrahepatic portosystemic shunt): (3) Liver cirrhosis, alcoholic: (4) SANFORD (acute kidney injury): (5) Hepatorenal syndrome: (6) Thrombocytopenia: Plan Hepatic encephalopathy Patient has positive drug screen for methamphetamine and marijuana, takes Adderall at home History of alcohol-related liver cirrhosis, TIPS Worsening kidney function with refractory ascites despite TIPS procedure, patient likely has component of hepatorenal syndrome Cannot get Lasix or spironolactone because of low blood pressure, No signs of shock, added midodrine Patient not on any nephrotoxic agents Requested urine sodium If kidney function does not improve will consult nephrology I will switch lactulose to p.o. regimen instead of SC as patient is getting more awake and alert Changes diet to mechanical soft home. Full code SBP ruled out, for portal hypertension continue ceftriaxone Thrombocytopenia DVT prophylaxis with SCDs Patient has history of esophageal gastric varices bleed, has had EGDs and colonoscopies in the past, he is due for variceal banding in July Hemoglobin stable I will threshold to transfer him to tertiary center in case of any worsening will stay low They have moved here in February, only has PCP, they are not seeing any gastroenterology or rn unit manager Attestations 2 Medical Necessity Statement*: Continue medical management Diagnoses Hepatic encephalopathy K76.82 S/P TIPS (transjugular intrahepatic portosystemic shunt) Z95.828 Liver cirrhosis, alcoholic K70.30 SANFORD (acute kidney injury) N17.9 Hepatorenal syndrome K76.7 Thrombocytopenia D69.6
[2023-06-27 08:20] LABS: Basophils % 0.7 %; Eosinophils # 0.1 10^3/uL (0.0-0.8); Eosinophils % 1.4 %; Hematocrit 24.9 % (37-53); Lymphocytes % 21.6 %; Mean Corpuscular HGB Conc 30.5 g/dL (30-55); Mean Corpuscular Hemoglobin 30.6 pg (27-33); Mean Corpuscular Volume 100.4 fl (82-101); Mean Platelet Volume 12.6 fL (7.4-10.4); Monocytes # 0.4 10^3/uL (0.2-0.9); Monocytes % 8.4 %; Neutrophils # 2.97 10^3/uL (1.8-7.7); Neutrophils % 67.7 %; Nucleated Red Blood Cells % 0 %; Platelet Count 64 10^3/cmm (157-399); Red Blood Count 2.48 10^6/uL (3.85-5.65); Red Cell Distribution Width 14.2 % (12.1-15.1); White Blood Count 4.39 10^3/uL (3.29-11.43)
[2023-06-27] MEDS: midodrine 5 mg TABLET PO (08:33)
[2023-06-27] MEDS: lactulose oral liq 20 gm/30 mL UDC PO ×3 (08:33→19:20)
[2023-06-27] MEDS: cefTRIAXone 2,000 MG in sodium chloride 0.9% (plus) 50 ML 100 MG IV (08:33)
[2023-06-27] MEDS: pantoprazole 40 mg SDV IVP ×2 (08:33→17:26)
[2023-06-27 08:35] LABS: Alanine Aminotransferase 9 U/L (0-41); Albumin Level 3.6 g/dL (3.5-5.2); Alkaline Phosphatase 75 U/L (40-130); Anion Gap 20.6 (5-19); Aspartate Amino Transferase 14 U/L (0-40); Blood Urea Nitrogen 56 mg/dL (6-20); C Reactive Protein 7.2 mg/L (0.0-4.9); Calcium 8.5 mg/dL (8.5-10.5); Carbon Dioxide 17 mmol/L (22-29); Chloride 105 mmol/L (98-107); Globulin 3.6 g/dL (1.3-4.6); Glomerular Filtration Rate 21.4 mL/min (90-130); Glucose 99 mg/dL (65-115); Osmolality Calculated 304 mOsm/kg (285-295); Potassium 3.6 mmol/L (3.5-5.1); Sodium 139 mmol/L (136-145); Total Bilirubin 1.7 mg/dL (0.15-1.2); Total Protein 7.2 g/dL (6.6-8.7)
[2023-06-27 08:40] LABS: Magnesium 0.9 mg/dL (1.7-2.3)
[2023-06-27 08:44] LABS: Tumor Marker Alpha Fetoprotein 1.8 ng/mL (0-8.3)
[2023-06-27 08:50] LABS: HIV 1 & 2 Antibody Non-Reactive (Non-Reactiv); HIV 1 & 2 Antigen Non-Reactive (Non-Reactiv)
[2023-06-27 08:57] LABS: Hepatitis A Antibody IgM Non-Reactive (Nonreactive); Hepatitis B Core AB, Total Non-Reactive (Nonreactive); Hepatitis B Surface Antigen Non-Reactive (Nonreactive); Hepatitis C Virus Antibody Non-Reactive (Nonreactive)
[2023-06-27] MEDS: magnesium sulfate premix 2 GM/50 ML PIGGYBACK IV (09:02)
--- NOTE | 2023-06-27 09:04 | PC.PHAR ---
pts pankaj [phone] verified pts medications-pts states the pt takes protonix 40 daily and otc prilosec 20mg daily both-pts states the pt has been out of xanax 2mg hs for 4 days ext shows last filled 05/25/23 30d/s-
[2023-06-27 09:46] LABS: Basophils % 0.5 %; Eosinophils # 0.1 10^3/uL (0.0-0.8); Eosinophils % 1.2 %; Hematocrit 28.9 % (37-53); Lymphocytes # 0.9 10^3/uL (0.8-4.8); Lymphocytes % 20.9 %; Mean Corpuscular HGB Conc 31.5 g/dL (30-55); Mean Corpuscular Hemoglobin 30.3 pg (27-33); Mean Corpuscular Volume 96.3 fl (82-101); Mean Platelet Volume 12.3 fL (7.4-10.4); Monocytes # 0.2 10^3/uL (0.2-0.9); Monocytes % 5.2 %; Neutrophils # 3.05 10^3/uL (1.8-7.7); Neutrophils % 71.7 %; Nucleated Red Blood Cells % 0 %; Platelet Count 55 10^3/cmm (157-399); Red Cell Distribution Width 14.2 % (12.1-15.1); White Blood Count 4.25 10^3/uL (3.29-11.43)
[2023-06-27 09:51] LABS: Hepatitis B Surface AB < 3.5 (11.5-1000)
--- NOTE | 2023-06-27 10:36 | PM.CONSULT ---
Providers/Reason For Consult Consulting Physician/Specialty*: [facility]/Nephrology Reason for Consult*: [place] Attending Physician: Dorina Abel MD History of Present Illness History of Present Illness Eduar Alves is a 52-year-old male with past medical history of alcoholic liver cirrhosis history of prior TIPS procedure, ascites with recurrent paracentesis was brought to the ED due to altered mental status. He was found to have hepatic encephalopathy , possible hepato renal syndrome. Lab data significant for Cr 3.4 , Hb 9.8 and co2 level of 18.s/p paracentesis and 5L removed. Review of Systems Narrative: cannot obtain full ROS Medications/Allergies Home Medications Medication Instructions Recorded Confirmed Last Taken Type alprazolam 2 mg tablet (Xanax) 2 mg PO BEDTIME 03/27/23 06/27/23 4 Days Ago History ~06/23/23 trazodone 100 mg tablet 100 mg PO BEDTIME 03/27/23 06/27/23 04/18/23 History turmeric 400 mg capsule 400 mg PO .2 OR 3 TIMES WEEKLY 03/27/23 06/27/23 04/18/23 History albuterol sulfate 90 mcg/actuation 2 puff inhalation QID PRN 06/27/23 06/27/23 Unknown History aerosol inhaler Shortness Of Breath dextroamphetamine-amphetamine 20 20 mg PO BID 06/27/23 06/27/23 Unknown History mg tablet magnesium 250 mg tablet 500 mg PO QAM 06/27/23 06/27/23 Unknown History omeprazole magnesium 20 mg 20 mg PO DAILY 06/27/23 06/27/23 Unknown History tablet,delayed release (Prilosec OTC) ondansetron HCl 4 mg tablet 4 mg PO Q6H PRN Nausea And Vomiting 06/27/23 06/27/23 Unknown History pantoprazole 40 mg tablet,delayed 40 mg PO DAILY 06/27/23 06/27/23 Unknown History release Allergies Allergy/AdvReac Type Severity Reaction Status Date / Time aspirin Allergy Unknown Verified 06/26/23 18:07 ibuprofen Allergy Unknown Verified 06/26/23 18:07 morphine Allergy ALGY-Anaphy Verified 03/27/23 15:20 laxis NSAIDS (Non-Steroidal Allergy Unknown Verified 06/26/23 18:51 Anti-Inflamma tramadol Allergy ALGY-Anaphy Verified 03/27/23 15:20 laxis Current Medications Generic Name Dose Route Start Last Admin Trade Name Freq PRN Reason Stop Dose Admin Albumin Human 25 g in 100 mls @ 60 mls/hr 06/26/23 21:45 06/27/23 06:44 Albumin IV Infused Q8H JAMES Infusion Ceftriaxone Sodium 2,000 mg/ 50 mls @ 100 mls/hr 06/27/23 09:00 06/27/23 09:11 Sodium Chloride IV Infused Q24H JAMES Infusion Protocol Lactulose 20 gm 06/27/23 07:35 06/27/23 08:33 Lactulose Oral Liq 20 Gm/30 Ml Udc PO 20 gm Q6H JAMES Administration Oxycodone HCl 5 mg 06/27/23 02:38 06/27/23 06:47 Oxycodone 5 Mg Ir Tab/Cap PO 5 mg Q6H PRN Administration MODERATE PAIN Pantoprazole Sodium 40 mg 06/27/23 09:00 06/27/23 08:33 Pantoprazole 40 Mg Sdv IVP 40 mg BID JAMES Administration Rifaximin 550 mg 06/27/23 09:00 06/27/23 08:33 Rifaximin 550 Mg Tablet PO 550 mg BID JAMES Administration Protocol Thiamine HCl 100 mg 06/27/23 09:00 06/27/23 08:33 Thiamine 100 Mg/Ml Sdv IVP 100 mg DAILY JAMES Administration Vitals/I&O/Wt Last Vital Signs Pulse 77 06/27/23 08:15 Resp 18 06/27/23 08:15 BP 96/58 06/27/23 01:56 Pulse Ox 100 06/27/23 08:15 O2 Del Method Room Air 06/27/23 08:15 06/26/23 06/27/23 06/27/23 22:59 06:59 14:59 Intake Total 50 / 50 675 / 725 460 / 460 Output Total 450 / 450 Balance 50 / 50 225 / 275 460 / 460 Weight last 48 hrs Weight 58.377 kg Weight 58.377 kg Physical Exam Narrative: sleeping , exam deferred Urinary Catheter Management: Emery: Cath Placed During This Visit: yes Reason for Continuing Indwelling Catheter: Accurate Measurement of Urinary Output in Critically Ill Patients Urinary Catheter Date of Insertion: 06/26/23 Data 06/27/23 09:10 06/27/23 07:59 Micro: Microbiology 06/26/23 18:56 Blood Culture - Preliminary Blood SPECIMEN COLLECTED 06/26/23 18:52 Blood Culture - Preliminary Blood SPECIMEN COLLECTED A&P Assessment and plan (1) [place] (acute kidney injury): Plan 1. [place] : Cr 3.4 today and now 3.1 today . baseline Cr 0.9 Noted Krystin 10 ,- possible Prerenal vs HRS -BP borderline low , increase midodrine to 10 mg TID , continue IV albumin - strict i/O and monitor UOP 2. Alcoholic liver cirrhosis , h/o TIPS 3. Recurrent Ascites 4. Anemia Pt evaluated using audio visual cart. Time spent 35 min Consult Attestations Medical Necessity Statement: per medicine team Coding Level of Care Code Acute Code for [facility] Fwd Diagnoses SANFORD (acute kidney injury) N17.9
[2023-06-27] MEDS: ondansetron 2 mg/ML SDV 2 mL 4 MG IVP ×2 (11:22→19:58)
--- NOTE | 2023-06-27 12:26 | XR_ITS ---
WS: [id number] CHEST XRAY TECHNIQUE: Portable chest. CLINICAL INFORMATION: PICC COMPARISON: None. FINDINGS: RIGHT PICC line with tip at the SVC/RA junction. This could be retracted 2 to 3 cm for optimal distal SVC placement. No pneumothorax. IMPRESSION: See above
[2023-06-27] MEDS: midodrine 5 mg TABLET 10 MG PO ×2 (13:51→20:02)
[2023-06-27] MEDS: HYDROmorphone 1 mg/mL INJ 1 mL 0.25 MG IVP ×2 (13:58→19:19)
--- NOTE | 2023-06-27 17:48 | PC.NURSE ---
Patient resting well. Does have episodes of vomiting this shift. 2 so far. Patients abdomen continues to weep and drain from previous paracentesis. V/S stable
--- NOTE | 2023-06-27 22:55 | W.PM.EVENTAC ---
Event Notes Attestations Time Spent in Patient Care: Patient was evaluated, his mentation has improved significantly He has not complained on pain, abdominal distention is improved He is afebrile, no leukocytosis Hemoglobin stable Hemodynamic stable Currently on room air Spoke with [facility] does not have facility due to TIPS Spoke with [facility] hospitalist service He has been accepted he has been put on wait list, it can take up to 5 to 7 days for the transfer Indication for transfer patient will need TIPS procedure and evaluation by motor vehicle representative/manager terminal Likely cause of hepatic encephalopathy marijuana use SBP ruled out Alpha-fetoprotein unremarkable Records reviewed from [place] he does not have a shunt, even Doppler study did not show any signs of shunt placement, CT abdomen pelvis does not have a shunt as well Echo showed preserved ejection fraction
[2023-06-28] VITALS (229 sets, daily range): BP systolic 82–121; BP diastolic 48–82; PULSE 46–109; RESP 7–29; TEMP 36.4–36.7; O2SAT 82–100
[2023-06-28] MEDS: norepinephrine 4 MG/250 ML BAG 7.5 MG IV (00:17)
[2023-06-28] MEDS: lactulose oral liq 20 gm/30 mL UDC PO ×4 (00:42→17:57)
[2023-06-28] MEDS: HYDROmorphone 1 mg/mL INJ 1 mL 0.25 MG IVP ×5 (01:07→22:06)
[2023-06-28] MEDS: ondansetron 2 mg/ML SDV 2 mL 4 MG IVP ×2 (03:25→14:22)
[2023-06-28] MEDS: oxyCODONE 5 mg IR Tab/Cap PO (03:45)
[2023-06-28] MEDS: albumin 25 G/100 ML BAG 60 G IV ×3 (05:34→22:03)
[2023-06-28 05:36] LABS: Basophils % 0.5 %; Eosinophils # 0.1 10^3/uL (0.0-0.8); Eosinophils % 2.8 %; Hematocrit 23.4 % (37-53); Lymphocytes # 0.9 10^3/uL (0.8-4.8); Lymphocytes % 22.2 %; Mean Corpuscular HGB Conc 32.5 g/dL (30-55); Mean Corpuscular Hemoglobin 30.8 pg (27-33); Mean Corpuscular Volume 94.7 fl (82-101); Mean Platelet Volume 12.9 fL (7.4-10.4); Monocytes # 0.4 10^3/uL (0.2-0.9); Monocytes % 10.1 %; Neutrophils # 2.48 10^3/uL (1.8-7.7); Neutrophils % 64.1 %; Nucleated Red Blood Cells % 0 %; Platelet Count 67 10^3/cmm (157-399); Red Blood Count 2.47 10^6/uL (3.85-5.65); Red Cell Distribution Width 14.2 % (12.1-15.1); White Blood Count 3.87 10^3/uL (3.29-11.43)
[2023-06-28 05:59] LABS: Magnesium 1.2 mg/dL (1.7-2.3)
[2023-06-28 06:07] LABS: Alanine Aminotransferase 8 U/L (0-41); Alkaline Phosphatase 70 U/L (40-130); Anion Gap 21.3 (5-19); Aspartate Amino Transferase 15 U/L (0-40); Blood Urea Nitrogen 52 mg/dL (6-20); Calcium 8.9 mg/dL (8.5-10.5); Carbon Dioxide 18 mmol/L (22-29); Chloride 106 mmol/L (98-107); Globulin 3.1 g/dL (1.3-4.6); Glomerular Filtration Rate 24.1 mL/min (90-130); Glucose 104 mg/dL (65-115); Osmolality Calculated 308 mOsm/kg (285-295); Potassium 3.3 mmol/L (3.5-5.1); Sodium 142 mmol/L (136-145); Total Bilirubin 1.3 mg/dL (0.15-1.2); Total Protein 7.1 g/dL (6.6-8.7)
[2023-06-28 06:10] LABS: Creatinine Clr Calc Pharmacy 28.7459
[2023-06-28] MEDS: metoclopramide 5 mg/mL SDV 2 mL IVP ×3 (06:44→19:07)
[2023-06-28] MEDS: cefTRIAXone 2,000 MG in sodium chloride 0.9% (plus) 50 ML 100 MG IV (08:33)
[2023-06-28] MEDS: midodrine 5 mg TABLET 10 MG PO ×3 (08:34→20:47)
[2023-06-28] MEDS: pantoprazole 40 mg SDV IVP ×2 (08:34→17:53)
--- NOTE | 2023-06-28 09:56 | PM.PN ---
Subjective Subjective: c/o nausea Medications: Reviewed: Yes Vitals/I&O/Wt Last Vital Signs Temp 97.6 F 06/28/23 00:29 Pulse 86 06/28/23 09:10 Resp 18 06/28/23 09:10 BP 99/64 06/28/23 09:10 Pulse Ox 99 06/28/23 09:10 O2 Del Method Room Air 06/27/23 17:53 06/27/23 06/28/23 06/28/23 22:59 06:59 14:59 Intake Total 490 / 1190 50.375 / 1240.375 350 / 350 Output Total 250 / 250 200 / 450 Balance 240 / 940 -149.625 / 790.375 350 / 350 Weight last 48 hrs Weight 59.375 kg Weight 58.377 kg Weight 58.377 kg Physical Exam Narrative: awake , alert HEENT PEERLA S1S2 RRR per report No edema Urinary Catheter Management: Emery: Cath Placed During This Visit: yes Reason for Continuing Indwelling Catheter: Accurate Measurement of Urinary Output in Critically Ill Patients Urinary Catheter Date of Insertion: 06/26/23 Urinary Catheter Time of Insertion: 03:00 Data 06/28/23 05:05 06/28/23 05:05 Micro: Microbiology 06/26/23 18:56 Blood Culture - Preliminary Blood NEGATIVE TO DATE 06/26/23 18:52 Blood Culture - Preliminary Blood NEGATIVE TO DATE A&P Assessment and plan (1) [facility] (acute kidney injury): Plan 1. [place] : Cr 3.4 ton presentation and down to 2.8 today . baseline Cr 0.9 Noted Krystin 10 ,- possible Prerenal vs HRS -BP borderline low , increased midodrine to 10 mg TID , continue IV albumin - strict i/O and monitor UOP 2. Alcoholic liver cirrhosis , h/o TIPS 3. Recurrent Ascites 4. Anemia Pt evaluated using audio visual cart. Time spent 35 min Attestations Medical Necessity Statement*: per medicine team Coding Level of Care Code Acute Code for [facility] Fwd Diagnoses SANFORD (acute kidney injury) N17.9
--- NOTE | 2023-06-28 13:32 | P.PN_ITS ---
Subjective 2 Subjective: seen this am patient feeling better however still nauseated does not have much of an appetite accepted for transfer to [facility], on waiting list for bed Vitals/I&O/Wt Last Vital Signs Temp 97.6 F 06/28/23 00:29 Pulse 104 H 06/28/23 13:25 Resp 18 06/28/23 13:25 BP 99/58 06/28/23 13:25 Pulse Ox 98 06/28/23 13:25 O2 Del Method Room Air 06/28/23 09:58 06/27/23 06/28/23 06/28/23 22:59 06:59 14:59 Intake Total 490 / 1190 50.375 / 1240.375 710 / 710 Output Total 250 / 250 200 / 450 Balance 240 / 940 -149.625 / 790.375 710 / 710 Weight last 48 hrs Weight 59.375 kg Weight 58.377 kg Weight 58.377 kg Physical Exam 2 Narrative: AOx3, at bedside Abdominal distention improved from last night GCS 15 Nonfocal neuro exam nauseated Cachectic, malnourished Significant muscle mass loss S1, S2 Currently on room air vitals stable Urinary Catheter Management: Emery: Cath Placed During This Visit: yes Reason for Continuing Indwelling Catheter: Accurate Measurement of Urinary Output in Critically Ill Patients Urinary Catheter Date of Insertion: 06/26/23 Urinary Catheter Time of Insertion: 03:00 Data 06/28/23 05:05 06/28/23 05:05 Micro: Microbiology 06/26/23 18:56 Blood Culture - Preliminary Blood NEGATIVE TO DATE 06/26/23 18:52 Blood Culture - Preliminary Blood NEGATIVE TO DATE A&P Assessment and plan (1) Hepatic encephalopathy: (2) S/P TIPS (transjugular intrahepatic portosystemic shunt): (3) Liver cirrhosis, alcoholic: (4) [place]ORD (acute kidney injury): (5) Hepatorenal syndrome: (6) Thrombocytopenia: Plan Hepatic encephalopathy SAN[place]ORD Hepatorenal syndrome Hx esophageal varicies s/p banding Recurrant ascites History of alcohol-related liver cirrhosis, Patient has positive drug screen for methamphetamine and marijuana, takes Adderall at home Worsening kidney function with refractory ascites despite TIPS procedure, patient likely has component of hepatorenal syndrome Cannot get Lasix or spironolactone because of low blood pressure, No signs of shock, added midodrine Patient not on any nephrotoxic agents Requested urine sodium Patient s/p paracentesis in ER, 5L removed. Records reviewed, patient does not have TIPS procedure done in past. I will switch lactulose to p.o. regimen instead of [place] as patient is getting more awake and alert Changes diet to mechanical soft home. Nephrology consulted. Full code SBP ruled out, for portal hypertension continue ceftriaxone Thrombocytopenia DVT prophylaxis with SCDs check BMP daily Patient has history of esophageal gastric varices bleed, has had EGDs and colonoscopies in the past, he is due for variceal banding in July Hemoglobin stable They have moved here in February, only has PCP, they are not seeing any gastroenterology or digital sales planner Transfer to [facility] once bed available. Attestations 2 Medical Necessity Statement*: requires continued hospitalization for management of hepatorenal syndrome Diagnoses Hepatic encephalopathy K76.82 S/P TIPS (transjugular intrahepatic portosystemic shunt) Z95.828 Liver cirrhosis, alcoholic K70.30 [place] (acute kidney injury) N17.9 Hepatorenal syndrome K76.7 Thrombocytopenia D69.6
[2023-06-28 18:32] LABS: Urine Protein Random 38 mg/dL
[2023-06-28] MEDS: ALPRAZolam 0.5 mg Tablet 1 MG PO (20:47)
[2023-06-29] VITALS (88 sets, daily range): BP systolic 75–117; BP diastolic 43–77; PULSE 45–104; RESP 7–26; TEMP 36.8; O2SAT 93–100
[2023-06-29] MEDS: lactulose oral liq 20 gm/30 mL UDC PO ×4 (01:05→20:21)
[2023-06-29] MEDS: HYDROmorphone 1 mg/mL INJ 1 mL 0.25 MG IVP ×4 (04:23→17:44)
[2023-06-29] MEDS: albumin 25 G/100 ML BAG 60 G IV ×3 (05:22→20:49)
[2023-06-29 05:25] LABS: Basophils % 0.8 %; Eosinophils # 0.1 10^3/uL (0.0-0.8); Eosinophils % 2.6 %; Hematocrit 23.7 % (37-53); Lymphocytes # 1.1 10^3/uL (0.8-4.8); Lymphocytes % 22.5 %; Mean Corpuscular HGB Conc 30.8 g/dL (30-55); Mean Corpuscular Hemoglobin 30.5 pg (27-33); Mean Corpuscular Volume 99.2 fl (82-101); Mean Platelet Volume 12.5 fL (7.4-10.4); Monocytes # 0.4 10^3/uL (0.2-0.9); Monocytes % 8.4 %; Neutrophils # 3.29 10^3/uL (1.8-7.7); Neutrophils % 65.5 %; Nucleated Red Blood Cells % 0 %; Platelet Count 66 10^3/cmm (157-399); Red Blood Count 2.39 10^6/uL (3.85-5.65); Red Cell Distribution Width 14.2 % (12.1-15.1); White Blood Count 5.02 10^3/uL (3.29-11.43)
[2023-06-29 05:49] LABS: Magnesium 1.3 mg/dL (1.7-2.3)
[2023-06-29 05:51] LABS: Albumin Level 4.4 g/dL (3.5-5.2)
[2023-06-29] MEDS: oxyCODONE 5 mg IR Tab/Cap PO ×2 (06:17→12:31)
[2023-06-29 06:28] LABS: Alanine Aminotransferase 7 U/L (0-41); Alkaline Phosphatase 73 U/L (40-130); Aspartate Amino Transferase 15 U/L (0-40); Blood Urea Nitrogen 46 mg/dL (6-20); Carbon Dioxide 15 mmol/L (22-29); Chloride 103 mmol/L (98-107); Globulin 2.8 g/dL (1.3-4.6); Glomerular Filtration Rate 23.1 mL/min (90-130); Sodium 138 mmol/L (136-145); Total Protein 7.2 g/dL (6.6-8.7)
[2023-06-29 06:38] LABS: Glucose 119 mg/dL (65-115); Osmolality Calculated 299 mOsm/kg (285-295)
[2023-06-29] MEDS: pantoprazole 40 mg SDV IVP ×2 (07:52→17:45)
[2023-06-29] MEDS: midodrine 5 mg TABLET 10 MG PO ×3 (07:53→20:21)
[2023-06-29] MEDS: cefTRIAXone 2,000 MG in sodium chloride 0.9% (plus) 50 ML 100 MG IV (07:54)
[2023-06-29] MEDS: nicotine 21 mg Patch 1 PATCH TRANSDERMA (07:54)
[2023-06-29] MEDS: ondansetron 2 mg/ML SDV 2 mL 4 MG IVP ×2 (07:56→15:41)
[2023-06-29] MEDS: citric acid-sodium citrate 30 mL UDC 60 ML PO (09:16)
[2023-06-29] MEDS: magnesium sulfate premix 2 GM/50 ML PIGGYBACK IV (10:37)
[2023-06-29] MEDS: potassium phosphate (mEq K) 20 MEQ in sodium chloride 0.9% (100 ml) 100 ML 27.27 MEQ IV (10:38)
--- NOTE | 2023-06-29 15:08 | PM.PN ---
Subjective Subjective: seen today no acute events overnight cr improving awaiting transfer to [facility] [place] says he feels a lot better Vitals/I&O/Wt Last Vital Signs Temp 98.3 F 06/29/23 01:15 Pulse 69 06/29/23 10:59 Resp 19 H 06/29/23 13:15 BP 101/55 06/29/23 09:00 Pulse Ox 100 06/29/23 10:59 O2 Del Method Room Air 06/29/23 10:59 O2 Flow Rate 2 06/29/23 01:15 06/29/23 06/29/23 06/29/23 06:59 14:59 22:59 Intake Total 100 / 1390 460 / 460 Output Total 150 / 350 Balance -50 / 1040 460 / 460 Weight last 48 hrs Weight 59.421 kg Weight 59.375 kg Physical Exam Narrative: AOx3, at bedside Abdominal distention improved but present GCS 15 Nonfocal neuro exam Cachectic, malnourished Significant muscle mass loss S1, S2 Currently on room air vitals stable Urinary Catheter Management: Emery: Cath Placed During This Visit: yes Reason for Continuing Indwelling Catheter: Accurate Measurement of Urinary Output in Critically Ill Patients Urinary Catheter Date of Insertion: 06/26/23 Urinary Catheter Time of Insertion: 03:00 Data 06/29/23 05:12 06/29/23 05:12 A&P Assessment and plan (1) Hepatic encephalopathy: (2) S/P TIPS (transjugular intrahepatic portosystemic shunt): (3) Liver cirrhosis, alcoholic: (4) [place] (acute kidney injury): (5) Hepatorenal syndrome: (6) Thrombocytopenia: Plan Hepatic encephalopathy [place] Hepatorenal syndrome Hx esophageal varicies s/p banding Recurrant ascites History of alcohol-related liver cirrhosis, thrombocytopenia anemia, chronic Patient has positive drug screen for methamphetamine and marijuana, takes Adderall at home Worsening kidney function with refractory ascites despite TIPS procedure, patient likely has component of hepatorenal syndrome Cannot get Lasix or spironolactone because of low blood pressure, No signs of shock, added midodrine Patient not on any nephrotoxic agents Patient s/p paracentesis in ER, 5L removed. continue lactulose to p.o. regimen Changes diet to mechanical soft home. Nephrology consulted. continue midodrine 10 tid cr improving platelets 66 2/2 liver disease hb 7.7, continue to monitor Full code SBP ruled out, for portal hypertension continue ceftriaxone Thrombocytopenia DVT prophylaxis with SCDs check BMP daily Patient has history of esophageal gastric varices bleed, has had EGDs and colonoscopies in the past, he is due for variceal banding in July Hemoglobin stable They have moved here in February, only has PCP, they are not seeing any gastroenterology or assistant unit forester Transfer to [facility] [place] once bed available. Attestations Medical Necessity Statement*: needs icu level care for mgmt of hepatorenal syndrome Diagnoses Hepatic encephalopathy K76.82 S/P TIPS (transjugular intrahepatic portosystemic shunt) Z95.828 Liver cirrhosis, alcoholic K70.30 [place] (acute kidney injury) N17.9 Hepatorenal syndrome K76.7 Thrombocytopenia D69.6
--- NOTE | 2023-06-29 15:37 | P.PN_ITS ---
Subjective 2 Subjective: feels better Medications: Reviewed: Yes Vitals/I&O/Wt Last Vital Signs Temp 98.3 F 06/29/23 01:15 Pulse 69 06/29/23 10:59 Resp 19 H 06/29/23 13:15 BP 101/55 06/29/23 09:00 Pulse Ox 100 06/29/23 10:59 O2 Del Method Room Air 06/29/23 10:59 O2 Flow Rate 2 06/29/23 01:15 06/29/23 06/29/23 06/29/23 06:59 14:59 22:59 Intake Total 100 / 1390 460 / 460 Output Total 150 / 350 Balance -50 / 1040 460 / 460 Weight last 48 hrs Weight 59.421 kg Weight 59.375 kg Physical Exam 2 Narrative: awake , alert HEENT PEERLA S1S2 RRR per report No edema Urinary Catheter Management: Emery: Cath Placed During This Visit: yes Reason for Continuing Indwelling Catheter: Accurate Measurement of Urinary Output in Critically Ill Patients Urinary Catheter Date of Insertion: 06/26/23 Urinary Catheter Time of Insertion: 03:00 Data 06/29/23 05:12 06/29/23 05:12 A&P Assessment and plan (1) [place] (acute kidney injury): Plan 1. [place] : Cr 3.4 ton presentation and down to 2.9 today . baseline Cr 0.9 Noted Krystin 10 ,- possible Prerenal vs HRS -BP borderline low , increased midodrine to 10 mg TID , continue IV albumin - strict i/O and monitor UOP - diuretics on hold 2. Alcoholic liver cirrhosis , h/o TIPS 3. Recurrent Ascites , s/p 5 L paracentesis 4. Anemia Pt evaluated using audio visual cart. Time spent 35 min Attestations 2 Medical Necessity Statement*: per medicine Coding Level of Care Code Acute Code for [facility] Fwd Diagnoses [place]ORD (acute kidney injury) N17.9
[2023-06-29] MEDS: metoclopramide 5 mg/mL SDV 2 mL IVP (17:43)
[2023-06-29] MEDS: ALPRAZolam 0.5 mg Tablet 1 MG PO (20:21)
--- NOTE | 2023-06-29 20:55 | P.TS_ITS ---
Transfer Summary Providers Date of Admission: 06/27/23 01:48 Date of Discharge/Transfer: 06/29/23 Attending Provider at Admission: Costa Khan MD Attending Provider at Transfer: Dorina Abel MD Transfer Plans: Anticipated date of transfer: 06/29/23 . Diagnoses at Discharge Discharge Diagnosis (1) [place] (acute kidney injury): Status: Acute Reason for Visit Reason for Visit Unresponsive Hospital Course Hospital Course 52-year-old male who was admitted for management evaluation of hepatic encephalopathy, his ammonia level was 243, this was deemed secondary to use of marijuana, polysubstance abuse, methamphetamine positive he takes Adderall as well, hepatitis panel unremarkable, HIV antibodies negative, patient has history of alcohol-related liver cirrhosis, as per the they had TIPS procedure done in [place] that was aborted because of bleeding complication, he was seen at [facility] where Doppler and CT scan of abdomen pelvis did not show any shunt, with cross questioning with it seems like they do not have good insight regarding TIPS procedure, patient has history of GI bleed related to portal hypertension status post band ligation, he was getting paracentesis every 2 weeks, there is concern for hepatorenal syndrome nephrology was consulted during this hospital stay patient was put on midodrine which improved creatinine from 3.4 at presentation, 2.9 at the time of transfer his baseline creatinine seems to be 1.9 urine sodium 10 He was put on albumin and midodrine 10 mg 3 times daily, diuretics were put on hold Paracentesis was done at the time of admission, there is no WBC and peritoneal fluid, SBP ruled out patient's hemoglobin remained stable around 9 he remained compliant with his encephalopathy improved gradually with use of lactulose, he is full code, Patient would definitely benefit from TIPS procedure because he is requiring recurrent paracentesis he will be considered high risk, he will also need evaluation for liver transplant He has been accepted at [facility] they have not establish care with any rules examiner or scale manager Physical Exam Narrative: AOx3, at bedside Abdominal distention improved but present GCS 15 Nonfocal neuro exam Cachectic, malnourished Significant muscle mass loss S1, S2 Currently on room air vitals stable Urinary Catheter Management: Emery: Cath Placed During This Visit: yes Reason for Continuing Indwelling Catheter: Accurate Measurement of Urinary Output in Critically Ill Patients Urinary Catheter Date of Insertion: 06/26/23 Urinary Catheter Time of Insertion: 03:00 TS Data Studies Completed and Pending Pending at discharge Category Date Time Status Blood Culture Stat Lab 06/26/23 18:56 Results Complete Blood Count w/Auto AM LABS Lab 06/30/23 04:00 Ordered Comprehensive Metabolic Panel AM LABS Lab 06/30/23 04:00 Ordered Magnesium AM LABS Lab 06/30/23 04:00 Ordered Peritoneal Fld Adenosine Deami Routine Lab 06/27/23 01:29 Received Completed Studies During Hospitalization Category Date Time Status CT abdomen pelvis wo con [id number] Stat Cat Scan 06/26/23 21:[address] head wo con* [id number] Stat Cat Scan 06/26/23 18:21 Completed XR chest 1V portable [id number] Routine Exams 06/27/23 12:26 Completed CV. echo complete* [id number] Routine Ultrasound 06/27/23 02:38 Completed Laboratory Last Values WBC 5.02 10^3/uL (3.29-11.43) 06/29/23 05:12 RBC 2.39 10^6/uL (3.85-5.65) L 06/29/23 05:12 Hgb 7.30 g/dL (11.27-16.99) L 06/29/23 05:12 Hct 23.7 % (37-53) L 06/29/23 05:12 MCV 99.2 fl (82-101) 06/29/23 05:12 MCH 30.5 pg (27-33) 06/29/23 05:12 MCHC 30.8 g/dL (30-55) D 06/29/23 05:12 RDW 14.2 % (12.1-15.1) 06/29/23 05:12 Plt Count 66 10^3/cmm (157-399) L 06/29/23 05:12 MPV 12.5 fL (7.4-10.4) H 06/29/23 05:12 Neut % (Auto) 65.5 % 06/29/23 05:12 Lymph % (Auto) 22.5 % 06/29/23 05:12 [place] % (Auto) 8.4 % 06/29/23 05:12 Eos % (Auto) 2.6 % 06/29/23 05:12 Baso % (Auto) 0.8 % 06/29/23 05:12 Neut # (Auto) 3.29 10^3/uL (1.8-7.7) 06/29/23 05:12 Lymph # (Auto) 1.1 10^3/uL (0.8-4.8) 06/29/23 05:12 [place] # (Auto) 0.4 10^3/uL (0.2-0.9) 06/29/23 05:12 Eos # (Auto) 0.1 10^3/uL (0.0-0.8) 06/29/23 05:12 Baso # (Auto) 0.0 10^3/uL (0.0-0.1) 06/29/23 05:12 Nucleated RBC % (auto) 0 % 06/29/23 05:12 Nucleated RBCs # 0.0 /100WBC 06/29/23 05:12 PT 17.60 SECONDS (12.1-14.9) H 06/26/23 18:52 INR 1.40 (0.8-1.2) H 06/26/23 18:52 APTT 33.0 SECONDS (23.9-36.7) 06/26/23 18:52 D-Dimer 15.50 ug/mLFEU (0-0.59) H 06/26/23 18:52 Sodium 138 mmol/L (136-145) 06/29/23 05:12 Potassium 3.0 mmol/L (3.5-5.1) L 06/29/23 05:12 Chloride 103 mmol/L (98-107) 06/29/23 05:12 Carbon Dioxide 15 mmol/L (22-29) L 06/29/23 05:12 Anion Gap 23.0 (5-19) H 06/29/23 05:12 BUN 46 mg/dL (6-20) H 06/29/23 05:12 Creatinine 2.9 mg/dL (0.7-1.2) H 06/29/23 05:12 GFR Calculation 23.1 mL/min (90-130) L 06/29/23 05:12 Glucose 119 mg/dL (65-115) H 06/29/23 05:12 Estimat Average Glucose 82 06/26/23 18:52 Hemoglobin A1c 4.5 % (4.0-6.0) 06/26/23 18:52 Calculated Osmolality 299 mOsm/kg (285-295) H 06/29/23 05:12 Lactic Acid 2.4 mmol/L (0.5-2.2) H 06/26/23 18:52 Lactic Acid (Sepsis) 1.8 mmol/L (0.5-2.2) 06/26/23 22:14 Calcium 9.0 mg/dL (8.5-10.5) 06/29/23 05:12 Magnesium 1.3 mg/dL (1.7-2.3) L 06/29/23 05:12 Total Bilirubin 1.0 mg/dL (0.15-1.2) 06/29/23 05:12 AST 15 U/L (0-40) 06/29/23 05:12 ALT 7 U/L (0-41) 06/29/23 05:12 Alkaline Phosphatase 73 U/L (40-130) 06/29/23 05:12 Ammonia 243 umol/L (16-60) H 06/26/23 18:52 C-Reactive Protein 7.2 mg/L (0.0-4.9) H 06/27/23 07:59 Total Protein 7.2 g/dL (6.6-8.7) 06/29/23 05:12 Albumin 4.4 g/dL (3.5-5.2) 06/29/23 05:12 Globulin 2.8 g/dL (1.3-4.6) 06/29/23 05:12 Tumor Marker AFP 1.8 ng/mL (0-8.3) 06/27/23 07:59 Vitamin B12 1044 pg/mL (232-1245) 06/26/23 18:52 Procalcitonin 0.15 ng/mL (0-0.5) 06/26/23 18:52 TSH 2.20 uIU/mL (0.27-4.20) 06/26/23 18:52 Urine Color Dark yellow (Yellow) 06/26/23 19:00 Urine Appearance Clear (CLEAR) 06/26/23 19:00 Urine pH 5 (5-7) 06/26/23 19:00 Ur Specific [place] 1.010 (1.005-1.030) 06/26/23 19:00 Urine Protein Neg (Negative) 06/26/23 19:00 Urine Glucose (UA) Norm (Normal) 06/26/23 19:00 Urine Ketones Negative (Negative) 06/26/23 19:00 Urine Blood Neg (Negative) 06/26/23 19:00 Urine Nitrate Negative (Negative) 06/26/23 19:00 Urine Bilirubin 1+ (Negative) H 06/26/23 19:00 Urine Urobilinogen Norm mg/dL (Negative) 06/26/23 19:00 Ur Leukocyte Esterase Negative (Negative) 06/26/23 19:00 Urine RBC 0-4 /hpf (0-2) H 06/26/23 19:00 Urine WBC 0-4 /hpf (0-5) H 06/26/23 19:00 Ur Squamous Epith Cells 0-4 /hpf (0-5) H 06/26/23 19:00 Amorphous Sediment Not Reportable 06/26/23 19:00 Urine Bacteria None /hpf (NONE) 06/26/23 19:00 Urine Mucus Trace /hpf 06/26/23 19:00 Ur Random Microalbumin 10 ug/dL (0-20) 06/27/23 02:43 U Random Total Protein 38 mg/dL 06/28/23 18:00 Ur Random Sodium 10 mmol/L 06/27/23 02:43 Ur Random Chloride 10 mmol/L 06/27/23 02:43 Urine Creatinine 143 mg/dL (39-259) 06/27/23 02:43 Microalb/Creat Ratio 70 mg/dL (0-20) H 06/27/23 02:43 Peritoneal Color Yellow (Pale Yellow) 06/27/23 01:29 Peritoneal Appearance Hazy (Clear) 06/27/23 01:29 Peritoneal pH 8.0 06/27/23 01:29 Peritoneal Spec [place] 1.010 06/27/23 01:29 Peritoneal WBC 0 /uL 06/27/23 01:29 Peritoneal RBC 0 10^3/uL 06/27/23 01:29 Periton Mononu # Auto 0.078 10^3/uL 06/27/23 01:29 Mononuclear WBCs % 89.700 % 06/27/23 01:29 Polynuclear WBCs % 10.300 % 06/27/23 01:29 Perit Polynuc WBCs # 0.009 10^3/uL 06/27/23 01:29 Peritoneal Diff Commnt Yes 06/27/23 01:29 Peritoneal Tot Protein 0.8 g/dL 06/27/23 01:29 Peritoneal Albumin 0.3 g/dL 06/27/23 01:29 Peritoneal LDH 26.0 U/L 06/27/23 01:29 Peritoneal Glucose 112.0 mg/dL 06/27/23 01:29 Peritoneal Amylase 8 U/L (88-109) L 06/27/23 01:29 Urine Opiates Screen Negative ng/mL (Negative) 06/27/23 02:43 Ur Barbiturates Screen Negative ng/mL (Negative) 06/27/23 02:43 Ur Phencyclidine Scrn Negative ng/mL (Negative) 06/27/23 02:43 Ur Amphetamines Screen Positive ng/mL (Negative) H 06/27/23 02:43 U Benzodiazepines Scrn Negative ng/mL (Negative) 06/27/23 02:43 Urine Cocaine Screen Negative ng/mL (Negative) 06/27/23 02:43 U Marijuana (THC) Screen Positive ng/mL (Negative) H 06/27/23 02:43 Hepatitis A IgM Ab Non-reactive (Nonreactive) 06/27/23 07:59 Hep Bs Antigen Non-reactive (Nonreactive) 06/27/23 07:59 Hep Bs Antibody < 3.5 (11.5-1000) L 06/27/23 07:59 Hep B Core Total Ab Non-reactive (Nonreactive) 06/27/23 07:59 Hepatitis C Antibody Non-reactive (Nonreactive) 06/27/23 07:59 HIV 1&2 Ab & HIV 1 Ag Non-reactive (Non-Reactiv) 06/27/23 07:59 HIV 1&2 Antibody Non-reactive (Non-Reactiv) 06/27/23 07:[address] 06/26/23 18:21 IMPRESSION: 1. No CT evidence of acute intracranial pathology. 2. Additional findings, as above. Abdomen/Pelvis CT 06/26/23 21:07 IMPRESSION: 1. Cirrhosis, mild splenomegaly and large volume ascites. 2. Multifocal bowel wall thickening, likely secondary to 3rd spacing. 3. Small right pleural effusion. 4. Additional findings, as above. Recent Clincial Data Last Vital Signs Temp 98.3 F 06/29/23 01:15 Pulse 84 06/29/23 20:00 Resp 15 06/29/23 20:00 BP 96/56 06/29/23 19:00 Pulse Ox 100 06/29/23 20:00 O2 Del Method Room Air 06/29/23 20:00 O2 Flow Rate 2 06/29/23 01:15 Vital Signs Pulse Resp BP Pulse Ox O2 Del Method 06/29/23 20:00 84 15 100 Room Air 06/29/23 19:00 65 9 L 96/56 98 06/29/23 18:45 51 L 7 L 94/52 99 06/29/23 18:30 47 L 14 94/56 97 06/29/23 18:15 65 21 H 93/52 98 06/29/23 18:00 69 15 98/64 97 06/29/23 17:45 101 H 16 117/76 98 06/29/23 17:44 14 06/29/23 17:30 77 10 L 111/68 97 06/29/23 17:15 97 17 92/65 93 06/29/23 17:00 99 17 92/65 100 06/29/23 16:45 84 18 83/44 97 06/29/23 16:30 84 24 H 86/46 97 06/29/23 16:15 85 24 H 84/44 97 06/29/23 16:00 85 24 H 86/43 97 06/29/23 15:45 81 18 104/59 96 06/29/23 15:30 77 19 H 98/54 96 06/29/23 15:15 79 14 101/56 96 06/29/23 15:00 79 19 H 92/53 95 06/29/23 14:45 73 16 102/53 96 06/29/23 14:30 72 19 H 95/53 96 06/29/23 14:15 74 17 106/54 96 06/29/23 14:00 74 12 104/52 96 06/29/23 14:00 81 06/29/23 13:45 71 19 H 102/56 96 06/29/23 13:30 70 14 109/68 96 06/29/23 13:15 87 18 106/64 100 06/29/23 13:15 19 H 06/29/23 13:00 85 16 112/74 100 06/29/23 12:45 85 16 105/66 100 06/29/23 12:31 20 H 06/29/23 12:30 82 10 L 110/63 100 06/29/23 12:15 88 21 H 109/64 100 06/29/23 12:00 104 H 13 112/72 99 06/29/23 11:45 66 12 90/53 97 06/29/23 11:30 71 11 L 100/60 98 06/29/23 11:15 70 14 112/65 99 06/29/23 11:00 87 22 H 99/64 100 06/29/23 10:59 69 14 100 Room Air 06/29/23 10:45 75 12 102/68 100 06/29/23 10:30 96 26 H 104/70 98 06/29/23 10:15 67 9 L 96/53 96 06/29/23 10:00 69 8 L 95/54 96 06/29/23 09:45 66 10 L 106/62 98 06/29/23 09:30 90 17 104/61 97 06/29/23 09:16 26 H 06/29/23 09:15 89 20 H 101/57 98 06/29/23 09:00 59 L 19 H 101/55 95 Intake & Output/Weight 06/27/23 06/28/23 06/29/23 06/30/23 06:59 06:59 06:59 06:59 Intake Total 725 / 725 1240.375 / 3661.302 5790 / 1390 1280 / 1280 Output Total 450 / 450 450 / 450 350 / 350 450 / 450 Balance 275 / 275 790.375 / 086.036 8387 / 1040 830 / 830 Weight 58.377 kg 59.375 kg 59.421 kg Vitals Last Vital Signs Temp 98.3 F 06/29/23 01:15 Pulse 84 06/29/23 20:00 Resp 15 06/29/23 20:00 BP 96/56 06/29/23 19:00 Pulse Ox 100 06/29/23 20:00 O2 Del Method Room Air 06/29/23 20:00 O2 Flow Rate 2 06/29/23 01:15 TS Medications Medications Albuterol/Ipratropium (Ipratropium-Albuterol 3 Ml Neb) 3 ml INHALATION Q6H PRN PRN Reason: SHORTNESS OF BREATH Alprazolam (Alprazolam 0.5 Mg Tablet) 1 mg PO BEDTIME JAMES Last Admin: 06/29/23 20:21 Dose: 1 mg Hydromorphone HCl (Hydromorphone 1 Mg/Ml Inj 1 Ml) 0.25 mg IVP Q4H PRN PRN Reason: PAIN Last Admin: 06/29/23 17:44 Dose: 0.25 mg Albumin Human (Albumin) 25 g in 100 mls @ 60 mls/hr IV Q8H [facility] Last Admin: 06/29/23 20:49 Dose: 60 mls/hr Ceftriaxone Sodium 2,000 mg/ (Sodium Chloride) 50 mls @ 100 mls/hr IV Q24H [facility]; Protocol Last Admin: 06/29/23 07:54 Dose: 100 mls/hr norepinephrine (Levophed) 4 mg in 250 mls @ 0 mls/hr IV .Q0M [facility]; Protocol Last Titration: 06/28/23 00:20 Dose: 0 mcg/min, 0 mls/hr Lactulose (Lactulose Oral Liq 20 Gm/30 Ml Udc) 20 gm PO Q6H [facility] Last Admin: 06/29/23 20:21 Dose: 20 gm Metoclopramide HCl (Metoclopramide 5 Mg/Ml Sdv 2 Ml) 5 mg IVP Q6H PRN PRN Reason: NAUSEA AND VOMITING Last Admin: 06/29/23 17:43 Dose: 5 mg Midodrine (Midodrine 5 Mg Tablet) 10 mg PO TID [facility] Last Admin: 06/29/23 20:21 Dose: 10 mg Nicotine (Nicotine 21 Mg Patch) 1 patch TRANSDERMA DAILY [facility] Last Admin: 06/29/23 07:54 Dose: 1 patch Ondansetron HCl (Ondansetron 2 Mg/Ml Sdv 2 Ml) 4 mg IVP Q6H PRN PRN Reason: NAUSEA AND VOMITING Last Admin: 06/29/23 15:41 Dose: 4 mg Oxycodone HCl (Oxycodone 5 Mg Ir Tab/Cap) 5 mg PO Q6H PRN PRN Reason: MODERATE PAIN Last Admin: 06/29/23 12:31 Dose: 5 mg Pantoprazole Sodium (Pantoprazole 40 Mg Sdv) 40 mg IVP BID [facility] Last Admin: 06/29/23 17:45 Dose: 40 mg Rifaximin (Rifaximin 550 Mg Tablet) 550 mg PO BID [facility]; Protocol Last Admin: 06/29/23 17:44 Dose: 550 mg Thiamine HCl (Thiamine 100 Mg/Ml Sdv) 100 mg IVP DAILY JAMES Last Admin: 06/29/23 07:52 Dose: 100 mg Discontinued Medications Acetaminophen (Acetaminophen 500 Mg Tablet) 500 mg PO Q4H PRN PRN Reason: fever Citric Acid/Sodium Citrate (Citric Acid-Sodium Citrate 30 Ml Udc) 60 ml PO BID ONE Stop: 06/29/23 08:54 Last Admin: 06/29/23 09:16 Dose: 60 ml Hydralazine HCl (Hydralazine 20 Mg/Ml Inj 1 Ml) 10 mg IVP ONCE ONE Stop: 06/28/23 03:33 Piperacillin Sod/Tazobactam (Sod 2.25 gm/ Sodium Chloride) 50 mls @ 100 mls/hr IV ONCE ONE; Protocol Stop: 06/26/23 21:51 Last Infusion: 06/26/23 22:55 Dose: Infused Piperacillin Sod/Tazobactam (Sod / Sodium Chloride) 50 mls @ 0 mls/hr [id number] CONT JAMES; Protocol Albumin Human (Albumin) 50 g in 200 mls @ 60 mls/hr IV ONCE ONE Stop: 06/27/23 01:07 Last Infusion: 06/27/23 00:44 Dose: Infused Albumin Human (Albumin) 50 g in 200 mls @ 60 mls/hr IV ONCE ONE Stop: 06/27/23 01:26 Last Infusion: 06/27/23 00:44 Dose: Infused Magnesium Sulfate (Magnesium Sulfate Premix) 2 gm in 50 mls @ 50 mls/hr IV ONCE ONE Stop: 06/27/23 09:41 Last Infusion: 06/27/23 10:08 Dose: Infused Magnesium Sulfate (Magnesium Sulfate Premix) 2 gm in 50 mls @ 50 mls/hr IV ONCE ONE Stop: 06/29/23 10:10 Last Admin: 06/29/23 10:37 Dose: 50 mls/hr Potassium Phosphate 20 meq/ (Sodium Chloride) 104.2553 mls @ 27.273 mls/hr IV ONCE ONE Stop: 06/29/23 13:01 Last Admin: 06/29/23 10:38 Dose: 27.27 mls/hr Lactulose (Lactulose Oral Liq 20 Gm/30 Ml Udc) 20 gm VT Q6H PRN PRN Reason: Encephalopathy Lactulose (Lactulose Oral Liq 20 Gm/30 Ml Udc) 20 gm VT Q6H [facility] Last Admin: 06/27/23 04:57 Dose: 20 gm Midodrine (Midodrine 5 Mg Tablet) 5 mg PO TID [facility] Last Admin: 06/27/23 08:33 Dose: 5 mg Allergies aspirin Allergy (Verified 06/26/23 18:07) Unknown ibuprofen Allergy (Verified 06/26/23 18:07) Unknown morphine Allergy (Verified 03/27/23 15:20) ALGY-Anaphylaxis NSAIDS (Non-Steroidal Anti-Inflamma Allergy (Verified 06/26/23 18:51) Unknown tramadol Allergy (Verified 03/27/23 15:20) ALGY-Anaphylaxis Home Medications alprazolam 2 mg tablet (Xanax) 2 mg PO BEDTIME 03/27/23 [History Confirmed 06/27/23] trazodone 100 mg tablet 100 mg PO BEDTIME 03/27/23 [History Confirmed 06/27/23] turmeric 400 mg capsule 400 mg PO .2 OR 3 TIMES WEEKLY 03/27/23 [History Confirmed 06/27/23] albuterol sulfate 90 mcg/actuation aerosol inhaler 2 puff inhalation QID PRN Shortness Of Breath 06/27/23 [History Confirmed 06/27/23] dextroamphetamine-amphetamine 20 mg tablet 20 mg PO BID 06/27/23 [History Confirmed 06/27/23] magnesium 250 mg tablet 500 mg PO QAM 06/27/23 [History Confirmed 06/27/23] omeprazole magnesium 20 mg tablet,delayed release (Prilosec OTC) 20 mg PO DAILY 06/27/23 [History Confirmed 06/27/23] ondansetron HCl 4 mg tablet 4 mg PO Q6H PRN Nausea And Vomiting 06/27/23 [History Confirmed 06/27/23] pantoprazole 40 mg tablet,delayed release 40 mg PO DAILY 06/27/23 [History Confirmed 06/27/23] Discharge Plan Discharge Patient Disposition: Home Condition: Stable Prescriptions: No Action trazodone 100 mg Tablet 100 mg PO BEDTIME alprazolam [Xanax] 2 mg Tablet 2 mg PO BEDTIME turmeric 400 mg Capsule 400 mg PO .2 OR 3 TIMES WEEKLY ondansetron HCl 4 mg tablet 4 mg PO Q6H PRN (Reason: Nausea And Vomiting) pantoprazole 40 mg tablet,delayed release (DR/EC) 40 mg PO DAILY dextroamphetamine-amphetamine 20 mg tablet 20 mg PO BID magnesium 250 mg Tablet 500 mg PO QAM albuterol sulfate 90 mcg/actuation Hfa Aerosol Inhaler 2 puff INHALATION QID PRN (Reason: Shortness Of Breath) Prilosec OTC 20 mg Tablet,Delayed Release (Dr/Ec) 20 mg PO DAILY Patient Instructions: Hyponatremia (ED), Benzodiazepine Use Disorder (ED), Dementia (ED), Non-diabetic Hypoglycemia (ED), Hypoglycemia in a Person with Diabetes (ED), Concussion (ED), Alcohol Intoxication (ED), Subarachnoid Hemorrhage (GEN), Altered Mental Status (ED), Opioid Safety Transfer Attestations Time Spent in Transfer Care: greater than 30 min Quality Metrics Clinical Quality Measures [ No reported AMI, CVA or VTE this stay] Coding Level of Care Code Acute Code for [facility] Fwd Diagnoses [place] (acute kidney injury) N17.9
[2023-06-30 17:19] LABS: Peritoneal Fld Adenosine Deami 1.5 U/L (<7.6)
== END 2023-06-29 23:28 | disposition short-term general hospital (02) | DRG 441 ==
LOC: ER 22:00 → MEDSURG 06-27 01:48 → ICU 06-27 02:24
PROVIDERS: Admitting Provider Internal Medicine; Emergency Provider Internal Medicine; Visit Provider Internal Medicine
DX: K76.82 Hepatic encephalopathy (principal); K76.7 Hepatorenal syndrome; K76.6 Portal hypertension; D68.9 Coagulation defect, unspecified; N17.9 Acute kidney failure, unspecified; K70.31 Alcoholic cirrhosis of liver with ascites; F10.10 Alcohol abuse, uncomplicated; D69.6 Thrombocytopenia, unspecified; F90.9 Attention-deficit hyperactivity disorder, unspecified type; F15.10 Other stimulant abuse, uncomplicated; F12.10 Cannabis abuse, uncomplicated
CPT/HCPCS: 36415; 36573; 36592; 51702; 70450; 71045; 74176; 80053; 80306; 80503; 81001; 82042; 82044; 82105; 82140; 82150; 82436; 82607; 82945; 83036; 83605; 83615; 83735; 83986; 84145; 84156; 84157; 84300; 84311; 84315; 84443; 85025; 85378; 85610; 85730; 86140; 86705; 86706; 86709; 86803; 87040; 87340; 87806; 89050; 93005; 93306; 96365; 96376; 99285; C1751; C9113; J0696; J1170; J2405; J2543; J2765; J3411; J3475; P9046; Q3014

== ENCOUNTER 2023-08-03 10:12 | Day surgery (SDC) | payer BC, SELFPAY ==
--- NOTE | 2023-08-03 10:34 | US_ITS ---
WS: [id number] ULTRASOUND-GUIDED THERAPEUTIC PARACENTESIS Procedure, risks, and complications have been explained to the patient. Consent is obtained. Utilizing aseptic technique and 1% buffered lidocaine, a small dermatome was made through which a 5 F rench Yueh catheter was inserted. Approximately 6300 ml of clear peritoneal fluid was obtained witho ut difficulty. No complications encountered. IMPRESSION: Uncomplicated paracentesis yielding 6300 ml of peritoneal fluid.
[2023-08-03 10:46] VITALS: BP 103/74; PULSE 89; RESP 18; TEMP 35.9; O2SAT 96; BMI 22.1
== END 2023-08-03 11:46 | disposition home or self-care (01) ==
PROVIDERS: Radiology Diagnostic Radiology; PCP Family Medicine; Visit Provider Family Medicine
PROC: (CPT 49082; principal; 2023-08-03 11:30)
DX: K70.30 Alcoholic cirrhosis of liver without ascites (principal)
CPT/HCPCS: 49083